=== PATIENT | female | born 1980 | race Hispanic/Latino ===

== ENCOUNTER 2017-07-27 10:04 | Emergency (ER) | payer OTHER ==
[2017-07-27] MEDS ORDERED: Sodium Chloride 0.9% 500 ML IV ONE ×2 (10:13→11:19)
--- NOTE | 2017-07-27 10:23 | C.PDOC ---
History Of Present Illness Patient BIBA from home for SOB. Patient has h/o asthma, states she used 4 nebs at home and gave herself a SC injection of epineprhine. In the field, patient was given IV solumedrol, IV magnesium sulfate, terbutaline and neb treatments. Time Seen by Provider: 07/27/17 10:09 Chief Complaint (Nursing): Respiratory Distress History Per: Patient, EMS History/Exam Limitations: no limitations Onset/Duration Of Symptoms: Hrs Current Symptoms Are (Timing): Still Present Current Respiratory Medications: See Home Med List Severity: Moderate Past Medical History Reviewed: Historical Data, Nursing Documentation, Vital Signs Vital Signs: Last Vital Signs Temp 97.8 F 07/27/17 10:14 Pulse 110 H 07/27/17 13:22 Resp 18 07/27/17 13:22 BP 117/77 07/27/17 13:22 Pulse Ox 96 07/27/17 13:22 - Medical History PMH: Anxiety, Asthma (intubationsX3), Depression, Gastrointestinal Ulcer, Pneumonia Surgical History: Appendectomy, Endoscopy, Tonsillectomy - [facility] Procedures CONTINUOUS INVASIVE MECHANICAL VENTILATION <96 CONSEC HRS (06/01/13) INFLUENZA VACCINATION (12/07/14) INJECT/INFUSE NEC (07/06/15) INSERT ENDOTRACHEAL TUBE (06/01/13) NEBULIZER THERAPY (07/06/15) NON-INVASIVE MECHANICAL VENTILATION (12/07/14) VACCINATION NEC (06/01/13) Family History: States: No Known Family Hx - Social History Hx Tobacco Use: No Hx Alcohol Use: No Hx Substance Use: No - Immunization History Hx Tetanus Toxoid Vaccination: No Hx Influenza Vaccination: Yes Hx Pneumococcal Vaccination: Yes Review Of Systems Except As Marked, All Systems Reviewed And Found Negative. Constitutional: Negative for: Fever, Chills Cardiovascular: Negative for: Chest Pain, Palpitations Respiratory: Positive for: Cough, Shortness of Breath, Wheezing Gastrointestinal: Negative for: Nausea, Vomiting, Abdominal Pain Physical Exam - Physical Exam Appears: Non-toxic, In Acute Distress (in mild respiratory distress) Skin: Warm, Dry Eye(s): bilateral: Normal Inspection Oral Mucosa: Moist Cardiovascular: Rhythm Regular (tachycardic) Respiratory: Accessory Muscle Use (mild), No Rales, No Rhonchi, Wheezing (mild expiratory wheezing) Gastrointestinal/Abdominal: Normal Exam, Bowel Sounds, Soft, No Tenderness Extremity: Normal ROM, No Pedal Edema, No Calf Tenderness Neurological/Psych: Oriented x3 ED Course And Treatment - Laboratory Results Result Diagrams: 07/27/17 10:35 07/27/17 10:35 ECG: Interpreted By Me, Viewed By Me (NSR 90 bpm, normal axis, T wave inversion III, no acute ST changes) ECG Interpretation: No Acute Changes O2 Sat by Pulse Oximetry: 95 (RA) Pulse Ox Interpretation: Normal - Radiology CXR: Interpreted by Me, Viewed By Me CXR Interpretation: Yes: No Acute Disease. No: Infiltrates Progress Note: Patient given duoneb and albuterol treatments. Blood work, EKG, CXR, peak flow ordered and reviewed. Reevaluation Time: 13:00 Reassessment Condition: Improved (Patient currently resting comfortably, on exam she has good air entry B/L without wheezing or accessory muscle use. Peak flow 250 - patient states this is good for her, and that she would like to be discharged home. Patient offered admission, but does not want to stay. rxs given for prednisone, albuterol inhaler. Patient instructed to return to ED immediately if she has worsening symptoms.) Disposition Counseled Patient/Family Regarding: Studies Performed, Diagnosis, Need For Followup, Rx Given - Disposition Referrals: Varsha London MD [Staff Provider] - Disposition: HOME/ ROUTINE Disposition Time: 13:00 Condition: STABLE Additional Instructions: FOLLOW UP WITH DR LONDON IN 1-2 DAYS USE MEDICATIONS DIRECTED RETURN TO ER IF SYMPTOMS WORSEN Prescriptions: Albuterol HFA [Ventolin HFA 90 mcg/actuation (8 g)] 0.09 mg IH Q4 PRN #1 puff PRN Reason: Wheezing predniSONE [predniSONE Tab] 60 mg PO DAILY #12 tab Instructions: Asthma (ED) Forms: [employer] (Kazakh) Print Language: INDONESIAN - Clinical Impression Clinical Impression: Asthma, Asthma exacerbation
[2017-07-27] MEDS ORDERED: Albuterol-Ipratrop 3 mg / 0.5 (3 ml) UD INH STA (10:24)
[2017-07-27 10:46] LABS: CHLORIDE 102 mmol/L (98-107)
[2017-07-27 10:47] LABS: BASO # 0.1 K/uL (0.0-0.2); BASO % 0.9 % (0.0-2.0); EOS # 0.9 K/uL (0.0-0.7); EOS % 5.5 % (0.0-4.0); HEMATOCRIT 41.8 % (34.0-47.0); LYMPH # 4.6 K/uL (1.0-4.3); LYMPH % 28.2 % (20.0-40.0); MEAN CELL VOLUME 88.6 fL (81.0-99.0); MEAN CORPUSCULAR HEMOGLOBIN 31.2 pg (27.0-31.0); MEAN CORPUSCULAR HGB CONC 35.2 g/dL (33.0-37.0); MEAN PLATELET VOLUME 7.9 fL (7.2-11.7); MONO # 0.6 K/uL (0.0-0.8); MONO % 3.4 % (0.0-10.0); NRBC % 0.1 % (0.0-2.0); POTASSIUM 3.8 mmol/L (3.6-5.2); RED CELL DISTRIBUTION WIDTH 13.1 % (11.5-14.5); SODIUM 134 mmol/L (132-148); WHITE BLOOD COUNT 16.4 K/uL (4.8-10.8)
[2017-07-27 10:49] LABS: ALKALINE PHOSPHATASE 68 U/L (38-126); AST/SGOT 34 U/L (14-36); BILIRUBIN,TOTAL 1.3 mg/dL (0.2-1.3); BLOOD UREA NITROGEN 14 mg/dL (7-17); CARBON DIOXIDE 17 mmol/L (22-30); GFR AFRICAN-AMERICAN > 60; TOTAL PROTEIN 8.4 g/dL (6.3-8.3)
[2017-07-27 10:50] LABS: ALT/SGPT 45 U/L (9-52); CALCIUM 8.6 mg/dl (8.6-10.4); GLUCOSE,RANDOM 195 mg/dL (65-105)
--- NOTE | 2017-07-27 11:01 | RAD ---
PROCEDURE: CHEST RADIOGRAPH, 1 VIEW HISTORY: SOB COMPARISON: Ro well on lateral chest 06/22/2016 FINDINGS: LUNGS: Clear. PLEURA: No pneumothorax or pleural fluid seen. CARDIOVASCULAR: Normal. OSSEOUS STRUCTURES: No significant abnormalities. VISUALIZED UPPER ABDOMEN: Normal. OTHER FINDINGS: None. IMPRESSION: No active disease.
[2017-07-27] MEDS ORDERED: Albuterol-Ipratrop 3 mg / 0.5 (3 ml) UD ONE (11:08)
[2017-07-27] MEDS ORDERED: Albuterol 0.083% Inhal Sol (2.5 mg/3 mL) UD IH STA (11:10)
[2017-07-27 11:30] LABS: RBC URINE 46 /hpf (0-3); URINE BILIRUBIN NEGATIVE (NEGATIVE); URINE BLOOD 3+ (NEGATIVE); URINE COLOR Yellow (YELLOW); URINE GLUCOSE (UA) NORMAL (Normal); URINE KETONE NEGATIVE (NEGATIVE); URINE LEUKOCYTE ESTERASE 2+ Leu/uL (Negative); URINE PROTEIN NEGATIVE (NEGATIVE); URINE UROBILINOGEN NORMAL mg/dL (0.2-1.0); WBC URINE 23 /hpf (0-5)
[2017-07-27 11:37] VITALS: TEMP 97.8
[2017-07-27 13:23] VITALS: BP 117/77; PULSE 110; RESP 18
[2017-07-29 00:16] VITALS: O2SAT 95
--- NOTE | 2017-07-29 12:51 | CARD ---
APPROVED REPORT EKG Measurement Heart [id number] <Conclusion> Normal sinus rhythm Prolonged QT Abnormal ECG
== END 2017-07-27 13:25 | disposition home or self-care (01) ==
LOC: C.ER 10:04
DX: J45.901 Unspecified asthma with (acute) exacerbation (principal)
CPT/HCPCS: 71010; 80053; 81001; 82550; 82553; 84484; 84703; 85025; 93005; 94640; 99285; J7040

== ENCOUNTER 2017-11-14 05:02 | Inpatient (IN) | payer OTHER ==
--- NOTE | 2017-11-14 05:16 | C.PDOC ---
History Of Present Illness 37 year old female presents to the ED stating she awoke in a coughing fit, unable to catch her breath. Used inhalers at home without relief. Asthma seemed to progressively worsen, so she called EMS. Patient received 125 mg solu-medrol and duoneb treatment in route. Has prior history of intubation and emergency cricothyroidotomy. Now speaking in 5-6 word sentences. No fever, chills, nausea , or vomiting. Time Seen by Provider: 11/14/17 05:15 Chief Complaint (Nursing): Respiratory Distress History Per: Patient History/Exam Limitations: no limitations Onset/Duration Of Symptoms: Hrs Current Symptoms Are (Timing): Still Present Associated Symptoms: Cough Preciptating Factors: None Severity: Severe Pain Scale Rating Of: 8 Recent travel outside of the [place]: No Additional History Per: EMS - Asthma History Prior Intubation (For Asthma): yes Medication Use: Daily Rescue Medications: See Home Medication List Control Medications: See Home Medication List Past Medical History Reviewed: Historical Data, Nursing Documentation, Vital Signs Vital Signs: Last Vital Signs Temp 99.8 F H 11/14/17 05:14 Pulse 120 H 11/14/17 06:28 Resp 18 11/14/17 06:28 BP 132/72 11/14/17 06:28 Pulse Ox 100 11/14/17 06:28 - Medical History PMH: Anxiety, Asthma (intubationsX3), Depression, Gastrointestinal Ulcer, Pneumonia Denies: HIV, HTN, Chronic Kidney Disease, Seizures, Sexually Transmitted Disease Surgical History: Appendectomy, Endoscopy, Tonsillectomy - [facility] Procedures CONTINUOUS INVASIVE MECHANICAL VENTILATION <96 CONSEC HRS (06/01/13) INFLUENZA VACCINATION (12/07/14) INJECT/INFUSE NEC (07/06/15) INSERT ENDOTRACHEAL TUBE (06/01/13) NEBULIZER THERAPY (07/06/15) NON-INVASIVE MECHANICAL VENTILATION (12/07/14) VACCINATION NEC (06/01/13) Family History: States: No Known Family Hx - Social History Hx Tobacco Use: No Hx Alcohol Use: No Hx Substance Use: No - Immunization History Hx Tetanus Toxoid Vaccination: No Hx Influenza Vaccination: Yes Hx Pneumococcal Vaccination: Yes Review Of Systems Constitutional: Negative for: Fever, Chills Eyes: Negative for: Redness ENT: Negative for: Throat Pain Cardiovascular: Negative for: Chest Pain Respiratory: Positive for: Cough, Shortness of Breath Gastrointestinal: Negative for: Nausea, Vomiting Genitourinary: Negative for: Dysuria Musculoskeletal: Negative for: Back Pain Skin: Negative for: Rash Neurological: Negative for: Weakness Psych: Negative for: Anxiety Physical Exam - Physical Exam Appears: In Acute Distress Skin: Warm, Dry Head: Normacephalic Eye(s): bilateral: Normal Inspection Oral Mucosa: Moist Tongue: Normal Appearing Lips: Normal Appearing Neck: Trachea Midline, Supple Chest: Symmetrical Cardiovascular: Rhythm Regular Respiratory: Decreased Breath Sounds, No Rales, No Rhonchi, Wheezing (scattered) Gastrointestinal/Abdominal: Soft, No Tenderness Back: No CVA Tenderness Extremity: Normal ROM Extremity: Bilateral: Atraumatic Pulses: Left Dorsalis Pedis: Normal, Right Dorsalis Pedis: Normal Neurological/Psych: Oriented x3, Normal Speech Gait: Unable To Assess ED Course And Treatment - Laboratory Results Result Diagrams: 11/14/17 05:27 18 05:27 ECG: Interpreted By Me, Viewed By Me ECG Rhythm: Sinus Tachycardia (120), Nonspecific Changes Pulse Ox Interpretation: Normal - Radiology CXR: Interpreted by Me, Viewed By Me CXR Interpretation: No: Infiltrates, Fracture, Pnemothorax Progress Note: Work-up initiated with blood work, ABG, flu swab, EKG, and chest x-ray. 5:50 AM feels better, less wheezing, Critical Care Time - Critical Care Note Total Time (in mins): 30 Documented critical care: time excludes all time spent performing seperately billable procedures. Disposition Discussed With : Varsha Mix Comment: accepted the pt on his service and took over the care estephania 6:48 AM Doctor Will See Patient In The: Hospital Counseled Patient/Family Regarding: Studies Performed, Diagnosis - Disposition Referrals: Varsha Mix MD [Primary Care Provider] - Disposition: HOSPITALIZED Disposition Time: 05:16 Condition: FAIR Forms: [facility] (Central African) - POA Present On Arrival: Poor Glycemic Control - Clinical Impression Clinical Impression: Acute asthma exacerbation - Scribe Statement The provider has reviewed the documentation as recorded by the Scribe (Olga Paz) Provider Attestation: All medical record entries made by the Scribe were at my direction and personally dictated by me. I have reviewed the chart and agree that the record accurately reflects my personal performance of the history, physical exam, medical decision making, and the department course for this patient. I have also personally directed, reviewed, and agree with the discharge instructions and disposition. Decision To Admit - Pt Status Changed To: Hospital Disposition Of: Inpatient - Admit Certification Admit to Inpatient:: After my assessment, the patient will require hospitalization for at least two midnights. This is because of the severity of symptoms shown, intensity of services needed, and/or the medical risk in this patient being treated as an outpatient. - InPatient: Physician Admission Certification:: After my assessment, the patient will require hospitalization for at least two midnights. This is because of the severity of symptoms shown, intensity of services needed, and/or the medical risk in this patient being treated as an outpatient. - . Bed Request Type: Telemetry Admitting Physician: Varsha Mix Patient Diagnosis: Acute asthma exacerbation
[2017-11-14] MEDS ORDERED: Sodium Chloride 0.9% 1,000 ML IV ONE (05:20)
[2017-11-14 05:30] LABS: BASO # 0.1 K/uL (0.0-0.2); BASO % 0.8 % (0.0-2.0); EOS # 0.7 K/uL (0.0-0.7); EOS % 5.1 % (0.0-4.0); HEMOGLOBIN 14.7 g/dL (11.0-16.0); LYMPH # 5.6 K/uL (1.0-4.3); LYMPH % 38.6 % (20.0-40.0); MEAN CORPUSCULAR HGB CONC 35.6 g/dL (33.0-37.0); MEAN PLATELET VOLUME 7.9 fL (7.2-11.7); MONO # 0.9 K/uL (0.0-0.8); NEUT # 7.2 K/uL (1.8-7.0); NEUT % 49.5 % (50.0-75.0); RBC 4.6 Mil/uL (3.80-5.20); RED CELL DISTRIBUTION WIDTH 13.3 % (11.5-14.5); WHITE BLOOD COUNT 14.6 K/uL (4.8-10.8)
[2017-11-14] MEDS ORDERED: Sodium Chloride 0.9% 1,000 ML ONE (05:41)
[2017-11-14 05:43] LABS: ARTERIAL BLOOD GAS HCO3 18.2 mmol/L (21-28); ARTERIAL BLOOD GAS O2 SAT 79.2 % (95-98); ARTERIAL BLOOD GAS PCO2 28 mm/Hg (35-45); ARTERIAL BLOOD GAS PH 7.37 (7.35-7.45); ARTERIAL BLOOD GAS PO2 36 mm/Hg (80-100); ARTERIAL BLOOD GAS TCO2 17.1 mmol/L (22-28)
[2017-11-14 05:47] LABS: CALCIUM 8.5 mg/dl (8.6-10.4); GFR AFRICAN-AMERICAN > 60; GFR NON-AFRICAN AMERICAN > 60
[2017-11-14] MEDS ORDERED: Albuterol-Ipratrop 3 mg / 0.5 (3 ml) UD ONE ×2 (05:56→11:25)
[2017-11-14 06:00] LABS: ALB/GLOB RATIO 1.2 (1.0-2.1); ALBUMIN 4.3 g/dL (3.5-5.0); ALT/SGPT 25 U/L (9-52); AST/SGOT 50 U/L (14-36); BLOOD UREA NITROGEN 11 mg/dL (7-17); MAGNESIUM 1.7 mg/dL (1.6-2.3)
[2017-11-14 06:11] LABS: INR 0.9; PROTHROMBIN TIME 10.4 SECONDS (9.7-12.2)
[2017-11-14] MEDS ORDERED: Piperacillin/Tazobact 3.375 gm 100 ML IVPB STA (06:17)
[2017-11-14] MEDS: Albuterol-Ipratrop 3 mg / 0.5 (3 ml) UD IH SCH (06:35)
[2017-11-14 06:40] LABS: ABG ALLEN TEST POS; ARTERIAL BLOOD GAS HCO3 21.7 mmol/L (21-28); ARTERIAL BLOOD GAS HEMOGLOBIN 13.1 g/dL (11.7-17.4); ARTERIAL BLOOD GAS O2 SAT 99.4 % (95-98); ARTERIAL BLOOD GAS PCO2 33 mm/Hg (35-45); ARTERIAL BLOOD GAS PH 7.39 (7.35-7.45); ARTERIAL BLOOD GAS PO2 121 mm/Hg (80-100)
[2017-11-14] MEDS ORDERED: Albuterol HFA 90 mcg/actuation (8 g) IH PRN ×2 (06:46→08:31)
[2017-11-14] MEDS ORDERED: Albuterol-Ipratrop 3 mg / 0.5 (3 ml) UD IH PRN (06:46)
[2017-11-14] MEDS: MethylPREDNISolone 40 mg Vial IVP SCH ×3 (06:58→20:13)
[2017-11-14] MEDS ORDERED: MethylPREDNISolone 40 mg Vial ONE (07:01)
[2017-11-14 08:27] LABS: SQUAMOUS EPITHIAL 1 /hpf (0-5); URINE BILIRUBIN NEGATIVE (NEGATIVE); URINE BLOOD NEGATIVE (NEGATIVE); URINE CLARITY Clear (Clear); URINE COLOR Straw (YELLOW); URINE GLUCOSE (UA) NORMAL (Normal); URINE LEUKOCYTE ESTERASE NEG Leu/uL (Negative); URINE NITRATE NEGATIVE (NEGATIVE); URINE PROTEIN NEGATIVE (NEGATIVE); URINE UROBILINOGEN NORMAL mg/dL (0.2-1.0)
[2017-11-14] MEDS: Albuterol-Ipratrop 3 mg / 0.5 (3 ml) UD INH SCH ×5 (08:45→23:37)
--- NOTE | 2017-11-14 08:54 | RAD ---
Chest x-ray single frontal view History: Shortness of breath. Comparison: 07/27/2017 Findings: Mild venous congestion. Heart size within normal limits. Impression: Mild venous congestion.
[2017-11-14] MEDS: Fluticasone Nasal 50 mcg/Spray NS SCH (11:09)
--- NOTE | 2017-11-14 11:35 | CP.PCM.PN ---
Subjective - Date & Time of Evaluation Date of Evaluation: 11/14/17 Time of Evaluation: 08:00 - Subjective Subjective: PGY 2 medicine progress note for Dr. Mix: Patient was seen and examined at bedside this morning. Patient stated she woke up at 4AM really short of breath. Denies recent illness or sick contacts. Patient state she has been taking all of her medications at home and reports frequent use of her nebulizer up to 10 times a days. She has prior history of intubation and emergency cricothyroidotomy. Patient sees Dr. Mix outpatient for asthma management. She is waiting for authorization of NUCALA treatment. She states her breathing has much improved since her arrival this morning. Denies chest pain, palpitations, fever/chill, productive cough. PMHx: asthma, anxiety, PUD, OCD, depression, endometriosis, and panic attacks SurgHx: tonsillectomy, rhinoplasty SocialHx: denies EtOH use, denies tobacco use, denies illicit drug use; lives at home with boyfriend and 2 children; unemployed FamilyHx: Mom- CHF (alive); Dad- CHF, asthma, DM, HTN, COPD (alive) Allergies: corn, eggs, milk, peanuts, seafood, shellfish, soy, wheat Meds: Risperidone 1mg PO HS, Klonipin 2mg PO daily, Singulair 10mg PO HS, Paxil 37.5 mg PO daily, Protonix 40mg PO daily, Advair 250/50, Flonase, Albuterol neublizer PMD: Dr Arley Negrete [facility] pulm: Dr. Varsha Mix Objective - Vital Signs/Intake and Output Vital Signs (last 24 hours): Temp Pulse Resp BP Pulse Ox 99.4 F 120 H 20 107/67 97 11/14/17 07:36 11/14/17 11:02 11/14/17 11:02 11/14/17 11:02 11/14/17 11:02 - Medications Medications: Current Medications Albuterol (Ventolin Hfa 90 Mcg/Actuation (8 G)) 1 puff IH RQ4 PRN PRN Reason: Wheezing Albuterol/Ipratropium (Duoneb 3 Mg/0.5 Mg (3 Ml) Ud) 3 ml IH RQ4 PRN PRN Reason: asthma Albuterol/Ipratropium (Duoneb 3 Mg/0.5 Mg (3 Ml) Ud) 3 ml INH RQ4 [facility] Last Admin: 11/14/17 08:45 Dose: 3 ml Alprazolam (Xanax) 1 mg PO TID PRN PRN Reason: Anxiety Stop: 11/21/17 06:47 Famotidine (Pepcid) 20 mg PO HS [facility] Fluticasone Propionate (Flonase) 1 spr NS DAILY [facility] Last Admin: 11/14/17 11:09 Dose: 1 spray Methylprednisolone (Solu-Medrol) 40 mg IVP Q6H [facility] Last Admin: 11/14/17 06:58 Dose: 40 mg Montelukast Sodium (Singulair) 10 mg PO HS [facility] Paroxetine HCl (Paxil Cr) 37.5 mg PO DAILY@1800 [facility] Risperidone (Risperdal Tab) 1 mg PO HS [facility] Fluticasone/Salmeterol (Advair Diskus 250/50) 1 puff IH RQ12 [facility] - Labs Labs: 11/14/17 05:27 11/14/17 05:27 PT 10.4 SECONDS (9.7-12.2) 11/14/17 05:27 INR 0.9 11/14/17 05:27 APTT 27 SECONDS (21-34) 11/14/17 05:27 - Constitutional Appears: Non-toxic, No Acute Distress - Head Exam Head Exam: ATRAUMATIC, NORMAL INSPECTION - Eye Exam Eye Exam: EOMI Pupil Exam: NORMAL ACCOMODATION - ENT Exam ENT Exam: Mucous Membranes Moist - Respiratory Exam Respiratory Exam: Wheezes, NORMAL BREATHING PATTERN. absent: Accessory Muscle Use, Respiratory Distress Additional comments: speaking in complete sentences - Cardiovascular Exam Cardiovascular Exam: REGULAR RHYTHM, +S1, +S2 - GI/Abdominal Exam GI & Abdominal Exam: Soft, Normal Bowel Sounds. absent: Distended, Firm, Guarding, Tenderness - Extremities Exam Extremities Exam: Normal Inspection. absent: Calf Tenderness, Pedal Edema - Back Exam Back Exam: NORMAL INSPECTION. absent: CVA tenderness (L), CVA tenderness (R), paraspinal tenderness - Neurological Exam Neurological Exam: Alert, Awake, CN II-XII Intact, Normal Gait, Oriented x3 Neuro motor strength exam: Left Upper Extremity: 5, Right Upper Extremity: 5, Left Lower Extremity: 5, Right Lower Extremity: 5 - Psychiatric Exam Psychiatric exam: Normal Affect, Normal Mood - Skin Skin Exam: Dry, Intact, Normal Color, Warm. absent: Cyanosis Assessment and Plan - Assessment and Plan (Free Text) Assessment: Asthma exacerbation patient speaking in complete sentences, minimal wheezing O2 saturation 97% on NC ABG wnl Duonebs prn Q4 hours Flonase Solu Medrol 40mg IVP Q6 hours Singulair 10mg PO HS Advair 250/50 f/u am labs Anxiety/depression Paxil 37.5 mg PO daily Risperidone 1mg PO HS Xanax 1mg PO TIS Prophylactic Measures Pepcid 20mg PO HS SCDS Lovenox 40mg SC daily Regular diet Dispo: Patient likely to be discharge tomorrow am Discussed with Dr. Mix. All management per Dr. Mix.
[2017-11-14] MEDS: Fluticasone-Salmeterol 250-50mcg Diskus IH SCH (21:35)
[2017-11-15] MEDS: MethylPREDNISolone 40 mg Vial IVP SCH ×4 (01:21→18:18)
[2017-11-15] MEDS: Albuterol-Ipratrop 3 mg / 0.5 (3 ml) UD INH SCH ×5 (03:15→19:55)
[2017-11-15] MEDS: Fluticasone-Salmeterol 250-50mcg Diskus IH SCH ×2 (08:16→19:55)
--- NOTE | 2017-11-15 09:53 | CP.PCM.PN ---
Subjective - Date & Time of Evaluation Date of Evaluation: 11/15/17 Time of Evaluation: 10:12 - Subjective Subjective: PGY 2 Medicine Note- Dr. Mix's service Patient seen and examined in no apparent acute distress. Patient states that she is having abdominal aches. She admits to some improvement of breathing. Patient reports sore throat. She otherwise denies subjective fevers or chills, nausea, vomiting or acute episodes of shortness of breath. Objective - Vital Signs/Intake and Output Vital Signs (last 24 hours): Temp Pulse Resp BP Pulse Ox 97.6 F 92 H 20 93/62 L 95 11/15/17 07:53 11/15/17 07:53 11/15/17 07:53 11/15/17 07:53 11/15/17 07:53 - Medications Medications: Current Medications Albuterol (Ventolin Hfa 90 Mcg/Actuation (8 G)) 1 puff IH RQ4 PRN PRN Reason: Wheezing Albuterol/Ipratropium (Duoneb 3 Mg/0.5 Mg (3 Ml) Ud) 3 ml IH RQ4 PRN PRN Reason: asthma Albuterol/Ipratropium (Duoneb 3 Mg/0.5 Mg (3 Ml) Ud) 3 ml INH RQ4 [facility] Last Admin: 11/15/17 08:15 Dose: 3 ml Alprazolam (Xanax) 1 mg PO TID PRN PRN Reason: Anxiety Stop: 11/21/17 06:47 Enoxaparin Sodium (Lovenox) 40 mg SC DAILY [facility] Famotidine (Pepcid) 20 mg PO [facility] Last Admin: 11/14/17 21:36 Dose: 20 mg Fluticasone Propionate (Flonase) 1 spr NS DAILY [facility] Last Admin: 11/14/17 11:09 Dose: 1 spray Methylprednisolone (Solu-Medrol) 40 mg IVP Q6H [facility] Last Admin: 11/15/17 06:17 Dose: 40 mg Montelukast Sodium (Singulair) 10 mg PO [facility] Last Admin: 11/14/17 21:36 Dose: 10 mg Paroxetine HCl (Paxil Cr) 37.5 mg PO DAILY@1800 [facility] Last Admin: 11/14/17 17:54 Dose: 37.5 mg Risperidone (Risperdal Tab) 1 mg PO [facility] Last Admin: 11/14/17 21:36 Dose: 1 mg Fluticasone/Salmeterol (Advair Diskus 250/50) 1 puff IH RQ12 [facility] Last Admin: 11/15/17 08:16 Dose: Not Given - Labs Labs: 11/14/17 05:27 11/14/17 05:27 PT 10.4 SECONDS (9.7-12.2) 11/14/17 05:27 INR 0.9 11/14/17 05:27 APTT 27 SECONDS (21-34) 11/14/17 05:27 - Constitutional Appears: Non-toxic - Head Exam Head Exam: NORMAL INSPECTION - Eye Exam Eye Exam: EOMI, PERRL - ENT Exam ENT Exam: Normal Exam - Respiratory Exam Respiratory Exam: NORMAL BREATHING PATTERN. absent: Decreased Breath Sounds, Respiratory Distress - Cardiovascular Exam Cardiovascular Exam: +S1, +S2 - GI/Abdominal Exam GI & Abdominal Exam: Soft - Extremities Exam Extremities Exam: Full ROM - Back Exam Back Exam: Full ROM - Psychiatric Exam Psychiatric exam: Normal Affect, Normal Mood - Skin Skin Exam: Dry, Intact, Normal Color, Warm Assessment and Plan - Assessment and Plan (Free Text) Assessment: Asthma exacerbation patient speaking in complete sentences, minimal wheezing O2 saturation 97% on NC ABG wnl Duonebs prn Q4 hours Flonase Solu Medrol 40mg IVP Q6 hours Singulair 10mg PO HS Advair 250/50 F/U AM labs Abdominal discomfort Bentyl administered Monitor Assess in the AM Anxiety/depression Paxil 37.5 mg PO daily Risperidone 1mg PO HS Xanax 1mg PO TIS Prophylactic Measures Pepcid 20mg PO HS SCDS Lovenox 40mg SC daily Regular diet Dispo: Patient likely to be discharged over the weekend. Discussed with Dr. Mix. All management per Dr. Mix.
[2017-11-15] MEDS: Enoxaparin 40 mg Syringe SC SCH (10:04)
[2017-11-15] MEDS: Fluticasone Nasal 50 mcg/Spray NS SCH (10:04)
--- NOTE | 2017-11-15 10:29 | HP ---
HISTORY: Ms. Porras is a 37-year-old female, admitted to the hospital with chief complaint of coughing, wheezing, and shortness of breath. The patient came to the hospital with severe respiratory distress, started on IV steroids, bronchodilators without good response, advised admission. The patient is a nonsmoker, nondrinker. ALLERGIES: THE PATIENT HAS MULTIPLE ALLERGIES. PHYSICAL EXAMINATION: GENERAL: The patient is awake, alert, oriented, short of breath. VITAL SIGNS: Temperature 98, pulse 90. HEENT: Within normal limits. NECK: Supple. CHEST: Symmetrical. HEART: Regular. ABDOMEN: Soft. EXTREMITIES: No edema. IMPRESSION: The patient suffers from status asthmaticus. The patient needs bedrest, supportive care, bronchodilator. Varsha Mix MD
[2017-11-15] MEDS: Benzocaine/Menthol (Cepacol) Lozenge MT PRN (18:17)
[2017-11-16] MEDS: MethylPREDNISolone 40 mg Vial IVP SCH ×3 (00:09→12:22)
[2017-11-16] MEDS: Albuterol-Ipratrop 3 mg / 0.5 (3 ml) UD INH SCH ×5 (00:31→16:19)
[2017-11-16 07:31] LABS: BASO % 0.1 % (0.0-2.0); LYMPH # 1.1 K/uL (1.0-4.3); MEAN CELL VOLUME 89.7 fL (81.0-99.0); MEAN CORPUSCULAR HGB CONC 35.7 g/dL (33.0-37.0); MEAN PLATELET VOLUME 7.8 fL (7.2-11.7); MONO # 0.4 K/uL (0.0-0.8); MONO % 1.9 % (0.0-10.0); NEUT # 21.2 K/uL (1.8-7.0); PLATELET COUNT 327 K/uL (130-400); RBC 4.05 Mil/uL (3.80-5.20); RED CELL DISTRIBUTION WIDTH 13.5 % (11.5-14.5); WHITE BLOOD COUNT 22.8 K/uL (4.8-10.8)
[2017-11-16 07:52] LABS: ALB/GLOB RATIO 1.3 (1.0-2.1); ALBUMIN 3.8 g/dL (3.5-5.0); ALT/SGPT 28 U/L (9-52); AST/SGOT 16 U/L (14-36); BLOOD UREA NITROGEN 17 mg/dL (7-17); CALCIUM 8.9 mg/dl (8.6-10.4); GFR AFRICAN-AMERICAN > 60; GFR NON-AFRICAN AMERICAN > 60; MAGNESIUM 2.1 mg/dL (1.6-2.3)
[2017-11-16 07:53] VITALS: BP 107/69; RESP 18; TEMP 97.8; O2SAT 93
[2017-11-16] MEDS: Fluticasone-Salmeterol 250-50mcg Diskus IH SCH (08:25)
[2017-11-16] MEDS: Benzocaine/Menthol (Cepacol) Lozenge MT PRN ×2 (08:55→14:08)
[2017-11-16] MEDS: Fluticasone Nasal 50 mcg/Spray NS SCH (09:44)
[2017-11-16] MEDS: Enoxaparin 40 mg Syringe SC SCH (09:45)
[2017-11-16 10:59] LABS: LYMPHOCYTE 1 % (20-40); MONOCYTE 1 % (0-10); NEUTROPHIL 98 % (50-75); TOTAL CELLS COUNTED 100
[2017-11-16 11:00] LABS: PLATELET ESTIMATE NORMAL (NORMAL)
--- NOTE | 2017-11-16 11:05 | CP.PCM.PN ---
Subjective - Date & Time of Evaluation Date of Evaluation: 11/16/17 Time of Evaluation: 10:40 - Subjective Subjective: SIZE TESTER NOTES Patient seen today with Dr. Rohan stanley , sob improved, c/o sore throat BC - negative - so far influenza - negative As per Dr. Rohan stanley, pat can be discharged home today with medrol dose packk an dz- pack and f/u with Dr. Rohan stanley office nex t week All rx given Objective - Vital Signs/Intake and Output Vital Signs (last 24 hours): Temp Pulse Resp BP Pulse Ox 97.8 F 84 18 107/69 93 L 11/16/17 07:05 11/16/17 07:05 11/16/17 07:05 11/16/17 07:05 11/16/17 07:05 Intake and Output: 11/16/17 11/16/17 06:59 18:59 Intake Total 240 Balance 240 - Medications Medications: Current Medications Albuterol (Ventolin Hfa 90 Mcg/Actuation (8 G)) 1 puff IH RQ4 PRN PRN Reason: Wheezing Albuterol/Ipratropium (Duoneb 3 Mg/0.5 Mg (3 Ml) Ud) 3 ml IH RQ4 PRN PRN Reason: asthma Albuterol/Ipratropium (Duoneb 3 Mg/0.5 Mg (3 Ml) Ud) 3 ml INH RQ4 [facility] Last Admin: 11/16/17 08:15 Dose: 3 ml Alprazolam (Xanax) 1 mg PO TID PRN PRN Reason: Anxiety Stop: 11/21/17 06:47 Benzocaine/Menthol (Cepacol Sore Throat) 1 margret MT Q4 PRN PRN Reason: Sore Throat Last Admin: 11/16/17 08:55 Dose: 1 margret Dicyclomine HCl (Bentyl) 10 mg PO QID PRN PRN Reason: Other Enoxaparin Sodium (Lovenox) 40 mg SC DAILY [facility] Last Admin: 11/16/17 09:45 Dose: 40 mg Famotidine (Pepcid) 20 mg PO HS [facility] Last Admin: 11/15/17 21:13 Dose: 20 mg Fluticasone Propionate (Flonase) 1 spr NS DAILY [facility] Last Admin: 11/16/17 09:44 Dose: 1 spray Methylprednisolone (Solu-Medrol) 40 mg IVP Q6H [facility] Last Admin: 11/16/17 06:10 Dose: 40 mg Montelukast Sodium (Singulair) 10 mg PO [facility] Last Admin: 11/15/17 21:13 Dose: 10 mg Paroxetine HCl (Paxil Cr) 37.5 mg PO DAILY@1800 [facility] Last Admin: 11/15/17 18:30 Dose: 37.5 mg Risperidone (Risperdal Tab) 1 mg PO [facility] Last Admin: 11/15/17 21:13 Dose: 1 mg Fluticasone/Salmeterol (Advair Diskus 250/50) 1 puff IH RQ12 [facility] Last Admin: 11/16/17 08:25 Dose: 1 puff - Labs Labs: 11/16/17 07:10 11/16/17 07:10 PT 10.4 SECONDS (9.7-12.2) 11/14/17 05:27 INR 0.9 11/14/17 05:27 APTT 27 SECONDS (21-34) 11/14/17 05:27
[2017-11-16 11:09] VITALS: PULSE 71
[2017-11-16] MEDS ORDERED: Pneumococcal 23-Valent Vaccine IM ONE (12:35)
--- NOTE | 2017-11-16 15:22 | CARD ---
APPROVED REPORT EKG Measurement Heart [id number] <Conclusion> Sinus tachycardia T wave abnormality, consider inferior ischemia Abnormal ECG
== END 2017-11-16 18:30 | disposition home or self-care (01) | DRG 97 ==
LOC: C.ER 05:02 → SUPCPDRO 05:02 → C.9E 06:46 → C.5S 14:37
PROVIDERS: ADMIT Internal Medicine Pulmonary Disease; ATTEND Internal Medicine Pulmonary Disease
DX: J45.902 Unspecified asthma with status asthmaticus (principal); F32.9 Major depressive disorder, single episode, unspecified; F41.0 Panic disorder [episodic paroxysmal anxiety]; F42.9 Obsessive-compulsive disorder, unspecified; Z87.11 Personal history of peptic ulcer disease; Z23 Encounter for immunization; Z91.012 Allergy to eggs; Z91.011 Allergy to milk products; Z91.010 Allergy to peanuts; Z91.013 Allergy to seafood; Z91.018 Allergy to other foods

== ENCOUNTER 2018-01-26 00:52 | Emergency (ER) | payer OTHER ==
[2018-01-26 01:03] VITALS: BMI 28.3
[2018-01-26 01:07] VITALS: RESP 19
[2018-01-26] MEDS ORDERED: Iohexol 240 (50 ml) ONE (02:11)
--- NOTE | 2018-01-26 02:13 | C.PDOC ---
History Of Present Illness <Aleida Alas - Last Filed: 01/26/18 03:51> <Yessenia Rondon - Last Filed: 01/26/18 06:12> 37 y/o female with asthma, anxiety, hx ?liver problems, GERD/PUD, and ?colitis presents to ed with 3 day hx of worsening abdominal pain with bloated feeling and vomiting today. pt denies fever and chills. no cough, no difficulty breathing. c/o pain to left upper quadrant and lower abdomen. (Yessenia Rondon) <Aleida Alas - Last Filed: 01/26/18 03:51> History Per: Patient History/Exam Limitations: no limitations Onset/Duration Of Symptoms: Days (3) Current Symptoms Are (Timing): Still Present Severity: Moderate Location Of Pain/Discomfort: RLQ, LUQ, LLQ Quality Of Discomfort: Unable To Describe Associated Symptoms: Nausea, Vomiting, Loss Of Appetite. denies: Fever, Chills , Diarrhea, Constipation Alleviating Factors: None Last Bowel Movement: Today Last Menstral Period: few days ago <Yessenia Rondon - Last Filed: 01/26/18 06:12> Time Seen by Provider: 01/26/18 01:13 Chief Complaint (Nursing): Abdominal Pain Past Medical History Reviewed: Historical Data, Nursing Documentation, Vital Signs - Medical History PMH: Anxiety, Asthma (intubationsX3), Depression, Gastrointestinal Ulcer, Pneumonia Denies: HIV, HTN, Chronic Kidney Disease, Seizures, Sexually Transmitted Disease Surgical History: Appendectomy, Endoscopy, Tonsillectomy Family History: States: Unknown Family Hx - Social History Hx Tobacco Use: No Hx Alcohol Use: No Hx Substance Use: No - Immunization History Hx Tetanus Toxoid Vaccination: No Hx Influenza Vaccination: Yes Hx Pneumococcal Vaccination: Yes <Yessenia Rondon - Last Filed: 01/26/18 06:12> Vital Signs: Last Vital Signs Temp 97.9 F 01/26/18 05:59 Pulse 70 01/26/18 05:59 Resp 19 01/26/18 05:59 BP 101/77 01/26/18 05:59 Pulse Ox 98 01/26/18 06:10 - [facility] Procedures CONTINUOUS INVASIVE MECHANICAL VENTILATION <96 CONSEC HRS (06/01/13) INFLUENZA VACCINATION (12/07/14) INJECT/INFUSE NEC (07/06/15) INSERT ENDOTRACHEAL TUBE (06/01/13) NEBULIZER THERAPY (07/06/15) NON-INVASIVE MECHANICAL VENTILATION (12/07/14) VACCINATION NEC (06/01/13) Review Of Systems Constitutional: Negative for: Fever, Chills Cardiovascular: Negative for: Chest Pain Respiratory: Negative for: Cough, Shortness of Breath, Wheezing Gastrointestinal: Positive for: Nausea, Vomiting, Abdominal Pain. Negative for : Diarrhea, Constipation Musculoskeletal: Negative for: Back Pain Skin: Negative for: Rash Neurological: Negative for: Weakness, Numbness <Yessenia Rondon - Last Filed: 01/26/18 06:12> Physical Exam - Physical Exam Appears: Non-toxic, No Acute Distress Skin: Warm, Dry Head: Atraumatic, Normacephalic Eye(s): bilateral: Normal Inspection Oral Mucosa: Moist Chest: Symmetrical, No Deformity, No Tenderness Cardiovascular: Rhythm Regular, No Murmur Respiratory: No Decreased Breath Sounds, No Accessory Muscle Use, No Wheezing Gastrointestinal/Abdominal: Bowel Sounds, Soft, Tenderness (in left lower quadrant), No Distention, No Guarding, No Rebound Back: No CVA Tenderness Neurological/Psych: Oriented x3, Normal Speech, Normal Cognition, Normal Motor, Normal Sensation <Yessenia Rondon - Last Filed: 01/26/18 06:12> ED Course And Treatment - Laboratory Results Result Diagrams: 01/26/18 02:28 01/26/18 02:28 <Aleida Alas - Last Filed: 01/26/18 03:51> - Laboratory Results Result Diagrams: 01/26/18 02:28 01/26/18 02:28 O2 Sat by Pulse Oximetry: 98 <Yessenia Rondon - Last Filed: 01/26/18 06:12> Medical Decision Making <Aleida Alas - Last Filed: 01/26/18 03:51> <Yessenia Rondon - Last Filed: 01/26/18 06:12> Medical Decision Making: pt wiht hx ab pain, n,v x few days with hx ?colitis in past. will get labs, do po contrast only ct (hx asthma and shellfish allergy) for possible diverticulitis, colits, pancreatitis. 603 am pt appears well. tolerated po contrast. ct scan neg for acute pathology , will d/c with ompespzole., for hiatal hernia. (Yessenia Rondon) Disposition <Aleida Alas - Last Filed: 01/26/18 03:51> Counseled Patient/Family Regarding: Studies Performed, Diagnosis, Need For Followup, Rx Given - Disposition Disposition Time: 06:05 <Yessenia Rondon - Last Filed: 01/26/18 06:12> - Disposition Referrals: Varsha Mix MD [Staff Provider] - Paxton Green MD [Staff Provider] - Disposition: HOME/ ROUTINE Condition: IMPROVED Additional Instructions: PLease take omeprazole as prescribed. FOllow up with Dr Mix and Dr Green (GI) . Return to ER for any worse symptoms. Prescriptions: Omeprazole 40 mg PO DAILY #15 capsule. Instructions: Hiatal Hernia (DC) Forms: [facility] (Luxem[place]ish), General Discharge Instructions - Clinical Impression Clinical Impression: Hiatal hernia, Abdominal pain
[2018-01-26 02:31] LABS: BASO # 0.1 K/uL (0.0-0.2); BASO % 0.9 % (0.0-2.0); EOS # 0.2 K/uL (0.0-0.7); EOS % 1.4 % (0.0-4.0); LYMPH # 3.1 K/uL (1.0-4.3); LYMPH % 21.3 % (20.0-40.0); MEAN CELL VOLUME 89.7 fL (81.0-99.0); MEAN CORPUSCULAR HGB CONC 35.7 g/dL (33.0-37.0); MEAN PLATELET VOLUME 7.5 fL (7.2-11.7); MONO # 0.7 K/uL (0.0-0.8); MONO % 5.1 % (0.0-10.0); NEUT # 10.4 K/uL (1.8-7.0); NEUT % 71.3 % (50.0-75.0); RBC 4.37 Mil/uL (3.80-5.20); RED CELL DISTRIBUTION WIDTH 13.7 % (11.5-14.5); WHITE BLOOD COUNT 14.5 K/uL (4.8-10.8)
[2018-01-26 02:34] LABS: SQUAMOUS EPITHIAL < 1 /hpf (0-5); URINE BACTERIA RARE (<OCC); URINE BILIRUBIN NEGATIVE (NEGATIVE); URINE BLOOD NEGATIVE (NEGATIVE); URINE CLARITY Turbid (Clear); URINE COLOR Red (YELLOW); URINE GLUCOSE (UA) NORMAL (Normal); URINE LEUKOCYTE ESTERASE NEG Leu/uL (Negative); URINE PROTEIN NEGATIVE (NEGATIVE); URINE UROBILINOGEN NORMAL mg/dL (0.2-1.0)
[2018-01-26] MEDS ORDERED: Iohexol 240 (50 ml) PO ONE (02:42)
[2018-01-26 02:43] LABS: ALB/GLOB RATIO 1.2 (1.0-2.1); ALBUMIN 3.9 g/dL (3.5-5.0); ALT/SGPT 34 U/L (9-52); AST/SGOT 19 U/L (14-36); BLOOD UREA NITROGEN 15 mg/dL (7-17); CALCIUM 8.7 mg/dl (8.6-10.4); GFR AFRICAN-AMERICAN > 60; GFR NON-AFRICAN AMERICAN > 60; LIPASE 206 U/L (23-300)
--- NOTE | 2018-01-26 04:49 | CT ---
EXAM: CT Abdomen and Pelvis Without Intravenous Contrast CLINICAL HISTORY: 37 years old, female; Pain; Abdominal pain; Patient HX: 03-27-15 images sent; Additional info: Lower ab pain, eval for colitis/diverticulitis TECHNIQUE: Axial computed tomography images of the abdomen and pelvis without intravenous contrast. All CT scans at this facility use one or more dose reduction techniques, viz.: automated exposure control; ma/kV adjustment per patient size (including targeted exams where dose is matched to indication; i.e. head); or iterative reconstruction technique. 656 images are submitted. Oral contrast was administered. Axial images are submitted in lung and soft tissue windows.Limitations: Absence of IV contrast decreases sensitivity for detecting vascular and visceral injury and abnormality. Oral contrast was administered. Coronal and sagittal reformatted images were created and reviewed. COMPARISON: CT - ABD PELVIS PO IV CONTRAST 2015-03-27 15:29 FINDINGS: Lung bases: There is bibasilar atelectasis. ABDOMEN:Limitations: Absence of IV contrast decreases sensitivity for detecting vascular and visceral injury and abnormality. Liver: Unremarkable. Gallbladder and bile ducts: Unremarkable. No ductal dilation. Pancreas: Unremarkable. No ductal dilation. Spleen: Left upper quadrant splenule. Adrenals: Unremarkable. No mass. Kidneys and ureters: Unremarkable. No obstructing stones. No hydronephrosis. Stomach and bowel: Small hiatal hernia with delayed emptying versus gastroesophageal reflux. No obstruction. No mucosal thickening. Appendix: Suboptimally seen normal appendix. PELVIS: Bladder: Bladder distention. Correlation with patient's voiding status is recommended. Reproductive: High riding ovaries left more than right. Left ovarian dominant follicles. Similar findings were seen on prior examination. ABDOMEN and PELVIS: Intraperitoneal space: Unremarkable. No free air. No significant fluid collection. Bones/joints: No acute fracture. No dislocation. Soft tissues: There is a fat-containing umbilical hernia. There is a fat-containing umbilical hernia. Vasculature: Unremarkable. No abdominal aortic aneurysm. Lymph nodes: Unremarkable. No enlarged lymph nodes. IMPRESSION: No acute findings.
[2018-01-26 06:01] VITALS: BP 101/77; PULSE 70; TEMP 97.9; O2SAT 98
== END 2018-01-26 06:31 | disposition home or self-care (01) ==
LOC: C.ER 00:52
DX: K44.9 Diaphragmatic hernia without obstruction or gangrene (principal); R10.32 Left lower quadrant pain
CPT/HCPCS: 74176; 80053; 81001; 83690; 85025; 96374; 99285; J2405; Q9966

== ENCOUNTER 2018-02-25 06:58 | Day surgery (SDC) | payer OTHER ==
--- NOTE | 2018-02-25 09:14 | CP.SDSHP ---
Same Day Surgery H & P - History Proposed Procedure: EGD Pre-Op Diagnosis: SEE NOTES - Previous Medical/Surgical History Pulmonary: Asthma Misc: Other Pain: 4.Moderate Pain - Allergies Allergies: Allergies corn Allergy (Verified 02/25/18 07:43) NAUSEA EGG Allergy (Verified 02/25/18 07:43) NAUSEA milk Allergy (Verified 02/25/18 07:43) NAUSEA peanut Allergy (Verified 02/25/18 07:43) RASH shellfish derived Allergy (Verified 02/25/18 07:43) ANAPHYLAXIS soy Allergy (Verified 02/25/18 07:43) RASH trees Allergy (Severe, Uncoded 02/25/18 07:43) RASH dust Allergy (Uncoded 02/25/18 07:43) SHORTNESS OF BREATH grass Allergy (Uncoded 02/25/18 07:43) RASH novacaine Allergy (Uncoded 02/25/18 07:43) ANAPHYLAXIS pets Allergy (Uncoded 02/25/18 07:43) SHORTNESS OF BREATH pollen Allergy (Uncoded 02/25/18 07:43) CONGESTION SEAFOOD Allergy (Uncoded 02/25/18 07:43) ANAPHYLAXIS - Physical Exam General Appearance: N Vital Signs: Vital Signs 02/25/18 07:20 Temperature 97.5 F L Pulse Rate 80 Respiratory 20 Rate Blood Pressure 129/78 O2 Sat by Pulse 99 Oximetry Mental Status: Alert & Oriented x3 Neuro: WNL Heart: WNL Lungs: Other GI: WNL - {Optional Preform as Required} Breast: WNL Abdomen: Other Rectal: Other Integument: WNL : Other Ortho: WNL ENT: WNL - Impression Pt. Evaluated Today:Candidate for Anesthesia & Procedure: Yes - Date & Time Time: 09:14 Short Stay Discharge - Short Stay Discharge Admitting Diagnosis/Reason for Visit: DYSPEPSIA Disposition: HOME/ ROUTINE
[2018-02-25] MEDS ORDERED: Midazolam 2 MG/2 ML VIAL ONE (09:20)
[2018-02-25] MEDS ORDERED: Propofol 10 mg/ml Inj (20 ML) ONE (09:21)
[2018-02-25] MEDS ORDERED: Belladonna-Phenobarbital PO ONE (09:30)
[2018-02-25 10:00] VITALS: TEMP 98.9
[2018-02-25 10:02] VITALS: O2SAT 98
[2018-02-25 10:40] VITALS: BP 96/61; PULSE 85; RESP 17
== END 2018-02-25 10:38 | disposition home or self-care (01) ==
LOC: C.ENDO 06:58
PROVIDERS: ATTEND Specialist
DX: K29.70 Gastritis, unspecified, without bleeding (principal); K44.9 Diaphragmatic hernia without obstruction or gangrene; B37.81 Candidal esophagitis
CPT/HCPCS: 43239; 84703; 88305; 88342; J2001; J2250; J2704

== ENCOUNTER 2018-07-20 21:46 | Inpatient (IN) | payer OTHER ==
[2018-07-20 21:50] VITALS: BMI 28.3
[2018-07-20] MEDS ORDERED: Iodixanol 320 MG/ML 100 ML BOTTLE IV ONE (22:32)
--- NOTE | 2018-07-20 22:33 | C.PDOC ---
History Of Present Illness 37 y/o F c PMHx anxiety, hiatal hernia, asthma, liver disease p/w R sided paresthesias and weakness x 2 hours. Patient states that 2 hours ago (this is the last time well), she had sudden pain of the R sided neck radiating down R arm and leg and to posterior head associated with inability to open mouth due to pain and tongue numbness, both causing difficulty speaking. She report tinnitus earlier today. She reports numbness and tingling of the R sided face, arm, and leg and feels weak in those limbs as well. Denies trauma, fever, vomiting, dysuria. She notes that earlier today, she had facial swelling like she was "stung by a bee," and she took Prednisone and Benadryl which significantly improved her redness and swelling. PMD Dominguez. Time Seen by Provider: 07/20/18 22:10 Chief Complaint (Nursing): Headache Past Medical History Vital Signs: Last Vital Signs Temp 98.4 F 07/20/18 21:54 Pulse 82 07/20/18 21:54 Resp 17 07/20/18 21:54 BP 125/90 07/20/18 21:54 Pulse Ox 98 07/20/18 21:54 - Medical History PMH: Anxiety, Asthma (intubationsX3), Depression, Gastrointestinal Ulcer, Pneumonia Denies: HIV, HTN, Chronic Kidney Disease, Seizures, Sexually Transmitted Disease Surgical History: Appendectomy, Endoscopy, Tonsillectomy - [facility] Procedures CONTINUOUS INVASIVE MECHANICAL VENTILATION <96 CONSEC HRS (06/01/13) INFLUENZA VACCINATION (12/07/14) INJECT/INFUSE NEC (07/06/15) INSERT ENDOTRACHEAL TUBE (06/01/13) NEBULIZER THERAPY (07/06/15) NON-INVASIVE MECHANICAL VENTILATION (12/07/14) VACCINATION NEC (06/01/13) Family History: States: Unknown Family Hx - Social History Hx Tobacco Use: No Hx Alcohol Use: No Hx Substance Use: No - Immunization History Hx Tetanus Toxoid Vaccination: No Hx Influenza Vaccination: No Hx Pneumococcal Vaccination: No Review Of Systems Except As Marked, All Systems Reviewed And Found Negative. Constitutional: Negative for: Fever Gastrointestinal: Negative for: Vomiting Physical Exam - Physical Exam Additional Physical Exam Comments: Gen: Appears anxious Head: NC/AT Eyes: PERRL. No ptosis. ENT: MMM. Mouth not opening largely when speaking causing muffled speech but able to open mouth fully when commanded Neck: No bruit. No pulstaile mass. Chest: No deformity CV: Regular rate Lungs: CTA b/l Abd: Soft, NT Back: No midline tenderness. No CVA tenderness Extremities: No deformity, edema, or tenderness Skin: No rash Neuro: Alert, follows commands. No facial droop. Equal utility hand strength. Sensation to light touch subjectively decreased on R leg, arm, and face. ED Course And Treatment - Laboratory Results Result Diagrams: 07/20/18 22:36 07/20/18 22:36 O2 Sat by Pulse Oximetry: 98 NIHSS Stroke Scale - Date/Time Evaluation Performed Date Performed: 07/20/18 Time Performed: 22:37 When Was NIHSS Performed: Baseline - How Severe is the Stroke Level of Consciousness: 0=Alert LOC to Questions: 0=Both comments correct LOC to commands: 0=Obeys both correctly Best Gaze: 0=Normal Visual: 0=No visual loss Facial: 0=Normal Motor Arm - Right: 0=No drift Motor Leg - Left: 0=No drift Motor Leg - Right: 0=No drift Limb Ataxia: 0=Absent Sensory: 1=Mild to moderate loss Best Language: 0=No aphasia Dysarthia: 1=Mild to moderate slurring Extinction & Inattention (Neglect): 0=Normal, no object rTPA Inclusion/Exclusion - Refusal of Treatment Patient Refused Treatment: No - Inclusion Criteria for Altepase Patient is 18 years or Older: Yes The Clinical Diagnosis of Ischemic Stroke That is Causing a Potentially Disabling Neurological Deficit: Yes Time of Onset is Well Established to be Less Than 270 Minute Before Treatment Would Begin: Yes Risk/Benefit Discussed With Patient/Family Member Present: Yes Medical Decision Making Medical Decision Making: CODE STROKE activated. EXAM: CTA Head and Neck with Intravenous Contrast. CLINICAL HISTORY: Right sided numbness, weakness TECHNIQUE: Axial CTA images of the head and neck performed with intravenous contrast. MIP reconstructed images were created and reviewed. CONTRAST: With; VISI 100 MLS was injected intravenously without incident. COMPARISON: None provided. FINDINGS: VASCULATURE: NECK: COMMON CAROTID ARTERIES No significant canal stenosis. No dissection or occlusion. EXTERNAL CAROTID ARTERIES Patent. HEAD AND NECK: INTERNAL CAROTID ARTERIES No stenosis by NASCET criteria. No dissection or occlusion. VERTEBRAL ARTERIES No significant canal stenosis. No dissection or occlusion. HEAD: ANTERIOR CEREBRAL ARTERIES No significant stenosis. No occlusion. No aneurysm. MIDDLE CEREBRAL ARTERIES No significant stenosis. No occlusion. No aneurysm. POSTERIOR CEREBRAL ARTERIES No significant stenosis. No occlusion. No aneurysm. BASILAR ARTERY No significant stenosis. No occlusion. No aneurysm. OTHER: SOFT TISSUES No acute finding. No occlusion or significant stenosis. BONES No acute osseous abnormality. IMPRESSION: Unremarkable CTA of the head and neck. Electronically signed on Jul 20, 2018 11:12:49 PM EDT by: Vishal Drew M.D., MBA Certified By ABR & CBCCT Fellowship Trained MRI and CT Specialist EXAM: CT Head Without IV contrast. CLINICAL HISTORY: Right sided numbness, weakness TECHNIQUE: Axial computed tomography images of the head/brain without intravenous contrast. 1043 mGy-cm COMPARISON: None provided. FINDINGS: BRAIN No acute intraparenchymal hemorrhage. No mass lesion. No CT evidence for acute territorial infarct. No midline shift or extra-axial collections. VENTRICLES: No hydrocephalus. ORBITS: The orbits are unremarkable. SINUSES AND MASTOIDS: The paranasal sinuses and mastoid air cells are clear. BONES: No fracture. IMPRESSION: No acute intracranial abnormality. Electronically signed on Jul 20, 2018 10:49:29 PM EDT by: Vishal Drew M.D., MONY Certified By ABR & CBCCT Fellowship Trained MRI and CT Specialist Discussed with Dr. Gaspar 10-52pm EST. Addendum electronically signed by Vishal Drew M.D., MONY Certified By ABR & CBCCT on July 20, 2018 11:01:[address] Mix accepts patient to his service. Dr. Jay consulted for neuro, given NIHSS of 2, psych history, vital signs, not candidate for tPA. Recommends ASA, IVF, and Magnesium 2g. Disposition - Disposition Disposition: HOSPITALIZED Disposition Time: 23:29 Condition: GUARDED Forms: [facility] (Danish) - POA Core Measure Indicators: Code Stroke - Clinical Impression Clinical Impression: Hemiparesthesia
[2018-07-20 22:40] LABS: BASO # 0.1 K/uL (0.0-0.2); BASO % 0.7 % (0.0-2.0); EOS # 0.1 K/uL (0.0-0.7); EOS % 0.6 % (0.0-4.0); HEMOGLOBIN 14.5 g/dL (11.0-16.0); LYMPH # 2.8 K/uL (1.0-4.3); MEAN CELL VOLUME 88.9 fL (81.0-99.0); MEAN CORPUSCULAR HEMOGLOBIN 31.5 pg (27.0-31.0); MEAN CORPUSCULAR HGB CONC 35.4 g/dL (33.0-37.0); MEAN PLATELET VOLUME 7.6 fL (7.2-11.7); MONO # 0.8 K/uL (0.0-0.8); MONO % 4.6 % (0.0-10.0); NEUT # 12.8 K/uL (1.8-7.0); NEUT % 77.1 % (50.0-75.0); RBC 4.59 Mil/uL (3.80-5.20); RED CELL DISTRIBUTION WIDTH 13.5 % (11.5-14.5); WHITE BLOOD COUNT 16.6 K/uL (4.8-10.8)
[2018-07-20 22:48] LABS: INR 1.1; PROTHROMBIN TIME 11.5 SECONDS (9.7-12.2)
[2018-07-20 22:53] LABS: ALB/GLOB RATIO 1.4 (1.0-2.1); ALBUMIN 4.2 g/dL (3.5-5.0); ALT/SGPT 24 U/L (9-52); AST/SGOT 18 U/L (14-36); BLOOD UREA NITROGEN 12 mg/dL (7-17); GFR NON-AFRICAN AMERICAN > 60; HDL CHOLESTEROL 62 mg/dL (30-70)
[2018-07-20] MEDS ORDERED: Sodium Chloride 0.9% 1,000 ML IV STA (23:02)
[2018-07-20 23:04] LABS: LDL CHOLESTEROL 75 mg/dL (0-129)
[2018-07-20] MEDS ORDERED: Sodium Chloride 0.9% 1,000 ML ONE (23:09)
[2018-07-20] MEDS ORDERED: Magnesium Sulfate 1 gm in D5W 1 GM/100 ML BAG IVPB ONE (23:09)
[2018-07-20] MEDS: Magnesium Sulfate 1 gm in D5W 1 GM/100 ML BAG IVPB SCH (23:13)
[2018-07-21] MEDS: Magnesium Sulfate 1 gm in D5W 1 GM/100 ML BAG IVPB SCH (06:17)
[2018-07-21] MEDS: Albuterol-Ipratrop 3 mg / 0.5 (3 ml) UD INH SCH ×4 (08:15→19:58)
--- NOTE | 2018-07-21 08:39 | CP.PCM.PN ---
Subjective - Date & Time of Evaluation Date of Evaluation: 07/21/18 Time of Evaluation: 07:00 - Subjective Subjective: PGY2 Progress Note for Dr. Mix Patient is a 37 year old female with PMHx of asthma, anxiety, PUD, OCD, depression, endometriosis, and panic attacks who presents for slurred speech and right sided arm and leg pain and weakness. Patient says yesterday she was cleaning and had an allergic reaction with facial swelling. She took benadryl and prednisone and the symptoms resolved. Then last night patient started falling asleep while she was going to the bathroom and was slurring her speech. She had right sided weakness so her family called 911. Today her speech is normal, but she says she still feels right sided weakness as well as generalized muscle aches and pains. Patient says she also gets dizzy with certain head positions and often feels like she is going to pass out. Patient also complains of darker urine with an "acidic" odor recently. Patient admits to generalized abdominal pain and bloating, but no dysuria. PMHx: asthma, anxiety, PUD, OCD, depression, endometriosis, and panic attacks SurgHx: tonsillectomy, rhinoplasty SocialHx: denies EtOH use, denies tobacco use, denies illicit drug use; lives at home with boyfriend and 2 children; unemployed FamilyHx: Mom- CHF (alive); Dad- CHF, asthma, DM, HTN, COPD (alive) Allergies: corn, eggs, milk, peanuts, seafood, shellfish, soy, wheat Meds: from prior admission (patient is unsure): Risperidone 1mg PO HS, Klonipin 2mg PO daily, Singulair 10mg PO HS, Paxil 37.5 mg PO daily, Protonix 40mg PO daily, Advair 250/50, Flonase, Albuterol neublizer Objective - Vital Signs/Intake and Output Vital Signs (last 24 hours): Temp Pulse Resp BP Pulse Ox 98.3 F 75 16 102/62 97 07/21/18 06:23 07/21/18 06:23 07/21/18 06:23 07/21/18 06:23 07/21/18 06:23 - Medications Medications: Current Medications Albuterol/Ipratropium (Duoneb 3 Mg/0.5 Mg (3 Ml) Ud) 3 ml INH RQ4 AMRIT Aspirin (Aspirin Chewable) 81 mg PO DAILY [facility] Enoxaparin Sodium (Lovenox) 40 mg SC DAILY [facility] Rosuvastatin Calcium (Crestor) 10 mg PO HS [facility] - Labs Labs: 07/20/18 22:36 07/20/18 22:36 PT 11.5 SECONDS (9.7-12.2) 07/20/18 22:36 INR 1.1 07/20/18 22:36 APTT 30 SECONDS (21-34) 07/20/18 22:36 - Constitutional Appears: Non-toxic, No Acute Distress - Head Exam Head Exam: ATRAUMATIC, NORMAL INSPECTION, NORMOCEPHALIC - Eye Exam Eye Exam: EOMI, Normal appearance - ENT Exam ENT Exam: Mucous Membranes Moist - Cardiovascular Exam Cardiovascular Exam: REGULAR RHYTHM, RRR, +S1, +S2 - GI/Abdominal Exam GI & Abdominal Exam: Soft, Normal Bowel Sounds. absent: Tenderness - Extremities Exam Extremities Exam: Normal Inspection. absent: Pedal Edema - Neurological Exam Neurological Exam: Alert, Awake, Oriented x3 Neuro motor strength exam: Left Upper Extremity: 4, Right Upper Extremity: 3, Left Lower Extremity: 4, Right Lower Extremity: 3 - Psychiatric Exam Psychiatric exam: Anxious - Skin Skin Exam: Intact, Normal Color, Warm Assessment and Plan - Assessment and Plan (Free Text) Assessment: Right Sided Weakness R/O CVA, code stroke called f/u neuro recommendations ASA 325mg po given Head CT: no acute intracranial abnormality. Head/ Neck CTA: 1. no evidence of endoluminal thrombus, occlusion, or definite significant stenosis in the intracranial arteries. 2. no evidence of hemodynamically significant stenosis in the internal carotid arteries. 3. patent bilateral vertebral arteries Carotid Doppler: negative b/l ASA 81mg po daily Lipid panel: Triglycerides 181, Cholesterol 155, LDL 75, HDL 62 Troponin I: neg x 2 Crestor 10mg po HS Asthma Cxray: findings may be related to reactive small airway disease. No focal consolidation. Duonebs prn Q4 hours Singulair 10mg PO HS Breo-Ellipta 200-25mcg Urine Color and Odor Change f/u UA and urine culture Anxiety/depression Paxil 30 mg PO daily Risperidone 1mg PO HS Xanax .5mg po BID PRN Prophylactic Measures Pepcid 20mg PO daily SCDS Lovenox 40mg SC daily Regular diet Management as per Dr. Mix
--- NOTE | 2018-07-21 08:43 | RAD ---
Date of service: 07/20/2018 HISTORY: Code Stroke COMPARISON: 11/14/2017. FINDINGS: LUNGS: There are increased streaky and nodular opacities in the lungs. No focal consolidation. There is linear scarring in the right middle lobe. PLEURA: No significant pleural effusion identified, no pneumothorax apparent. CARDIOVASCULAR: Normal. OSSEOUS STRUCTURES: No significant abnormalities. VISUALIZED UPPER ABDOMEN: Normal. OTHER FINDINGS: None. IMPRESSION: Findings may be related to reactive small airway disease. No focal consolidation.
--- NOTE | 2018-07-21 09:01 | CT ---
Date of service: 07/20/2018 PROCEDURE: CT HEAD WITHOUT CONTRAST. HISTORY: Right-sided numbness and weakness. Right-sided neck pain. COMPARISON: 08/05/2015 TECHNIQUE: Axial computed tomography images were obtained through the head/brain without intravenous contrast. Radiation dose: Total exam DLP = 1043 mGy-cm. This CT exam was performed using one or more of the following dose reduction techniques: Automated exposure control, adjustment of the mA and/or kV according to patient size, and/or use of iterative reconstruction technique. FINDINGS: HEMORRHAGE: No intracranial hemorrhage. BRAIN: No mass effect or edema. No atrophy or chronic microvascular ischemic changes. VENTRICLES: Unremarkable. No hydrocephalus. CALVARIUM: Unremarkable. PARANASAL SINUSES: Unremarkable as visualized. No significant inflammatory changes. MASTOID AIR CELLS: Unremarkable as visualized. No inflammatory changes. OTHER FINDINGS: None. IMPRESSION: No acute intracranial abnormality. If symptoms persists, consider correlation with MRI. These findings were preliminarily reported at 10:49 p.m. on 07/20/[address] Vishal Drew from [facility].
[2018-07-21 09:27] LABS: BASO # 0.1 K/uL (0.0-0.2); BASO % 0.6 % (0.0-2.0); EOS # 0.1 K/uL (0.0-0.7); EOS % 0.8 % (0.0-4.0); HEMOGLOBIN 13.8 g/dL (11.0-16.0); LYMPH # 2.8 K/uL (1.0-4.3); LYMPH % 18.1 % (20.0-40.0); MEAN CORPUSCULAR HEMOGLOBIN 30.8 pg (27.0-31.0); MEAN CORPUSCULAR HGB CONC 34.3 g/dL (33.0-37.0); MONO # 0.9 K/uL (0.0-0.8); MONO % 5.6 % (0.0-10.0); NEUT # 11.6 K/uL (1.8-7.0); NEUT % 74.9 % (50.0-75.0); RBC 4.48 Mil/uL (3.80-5.20); RED CELL DISTRIBUTION WIDTH 13.7 % (11.5-14.5); WHITE BLOOD COUNT 15.4 K/uL (4.8-10.8)
[2018-07-21 09:36] LABS: ALB/GLOB RATIO 1.4 (1.0-2.1); ALBUMIN 4.1 g/dL (3.5-5.0); ALT/SGPT 26 U/L (9-52); AST/SGOT 13 U/L (14-36); BLOOD UREA NITROGEN 12 mg/dL (7-17); GFR NON-AFRICAN AMERICAN > 60
[2018-07-21] MEDS ORDERED: Fluticasone-Vilanterol 200/25mcg Diskus INH SCH (09:45)
[2018-07-21] MEDS: Enoxaparin 40 mg Syringe SC SCH (11:00)
--- NOTE | 2018-07-21 13:14 | CT ---
PROCEDURE: CTA HEAD AND NECK WITH CONTRAST HISTORY: R sided numbness/weakness, R neck pain COMPARISON: None available. TECHNIQUE: Initial noncontrast head CT was performed. Subsequently, CT angiogram of the head and neck were performed after the intravenous administration of 80 mL of Omnipaque 350. Contiguous 1.5mm thick images were obtained in the axial plane of the neck. 2-D coronal and sagittal MPR images were obtained. Imaging postprocessing was performed with 3-D images also obtained. A delayed contrast head CT was also obtained. This CT exam was performed using one or more of the following dose reduction techniques: Automated exposure control, adjustment of the mA and/or kV according to patient size, and/or use of iterative reconstruction technique. Contrast dose: 100 mL Visipaque Radiation dose: Total exam DLP = 583.50 mGy-cm. FINDINGS: HEAD: Right: The intracranial internal carotid artery, and anterior and middle cerebral arteries are widely patent. Left: The intracranial internal carotid artery, and anterior and middle cerebral arteries are widely patent. Posterior circulation: The visualized intracranial vertebral arteries, basilar artery and posterior cerebral arteries are widely patent. There is no endoluminal filling defect to suggest thrombus. There is no intracranial saccular aneurysm. NECK: There is a three vessel aortic arch. There is no stenosis at the origins of the great vessels at the level of the aortic arch. Right Carotid: On the right, the common carotid, internal carotid and external carotid arteries are widely patent. There is no hemodynamically significant stenosis in the internal carotid artery by NASCET criteria. Left Carotid: On the left, the common carotid, internal carotid and external carotid arteries are widely patent. There is no hemodynamically significant stenosis in the internal carotid artery by NASCET criteria. The vertebral arteries are widely patent. The right vertebral artery is hypoplastic, an anatomic variant. The visualized soft tissues of the neck are normal. The visualized brain and cervical spine are within normal limits. The lung apices are clear. IMPRESSION: 1. No evidence of endoluminal thrombus,occlusion or definite significant stenosis in the intracranial arteries. 2. No evidence of hemodynamically significant stenosis in the internal carotid arteries. 3. Patent bilateral vertebral arteries. A preliminary report was provided by [facility].
[2018-07-21 14:38] LABS: CK-MB 0.32 ng/mL (0.0-3.38)
--- NOTE | 2018-07-21 16:42 | CP.PCM.CON ---
History of Present Illness - History of Present Illness History of Present Illness: Neurology Consultation Note: Mrs. Porras is a 37-year-old woman with a past medical history of anxiety, asthma, liver disease, who states that yesterday while she was on the toilet, she felt confused and had numbness on the right side. She states that she felt like she was "swollen" all over and had an allergic reaction. This numbness progressed to complete paralysis and her confusion progressed to speech difficulty. Her family witnessed this and brought her to the ED. Her symptoms resolved. Her speech became fluent and she had no objective weakness on exam, but she continued to complain of right side numbness. Her NIHSS was 2. She was not a good candidate for IV tPA due to minimal and rapidly improving symptoms. Today, the patient is basically at baseline, but continues to complain of right side weakness/numbness. Her speech is normal. Review of Systems - Constitutional Constitutional: absent: As Per HPI, Anorexia, Chills, Daytime Sleepiness, Excessive Sweating, Fatigue, Fever, Frequent Falls, Headache, Increased Appetite, Lethargy, Malaise, Night Sweats, Snoring, Sleep Apnea, Weight Gain, Weight Loss, Weakness, Other - EENT Eyes: absent: As Per HPI, Blind Spots, Blurred Vision, Change in Vision, D ecreased Night Vision, Diplopia, Discharge, Dry Eye, Exophthalmos, Floaters, Irritation, Itchy Eyes, Loss of Peripheral Vision, Pain, Photophobia, Requires Corrective Lenses, Sees Flashes, Spots in Vision, Tunnel Vision, Other Visual Disturbances, Loss of Vision, Other Ears: absent: As Per HPI, Decreased Hearing, Ear Discharge, Ear Pain, Tinnitus, Abnormal Hearing, Disequilibrium, Dizziness, Other Nose/Mouth/Throat: absent: As Per HPI, Epistaxis, Nasal Congestion, Nasal Discharge, Nasal Obstruction, Nasal Trauma, Nose Pain, Post Nasal Drip, Sinus Pain, Sinus Pressure, Bleeding Gums, Change in Voice, Dental Pain, Dry Mouth, Dysphagia, Halitosis, Hoarsness, Lip Swelling, Mouth Lesions, Mouth Pain, Odynophagia, Sore Throat, Throat Swelling, Tongue Swelling, Facial Pain, Neck Pain, Neck Mass, Other - Breasts Breasts: absent: As Per HPI, Change in Shape, Mass, Pain, Nipple Discharge, Nipple Inversion, Skin Changes, Swelling, Other - Cardiovascular Cardiovascular: absent: As Per HPI, Acrocyanosis, Chest Pain, Chest Pain at Rest, Chest Pain with Activity, Claudication, Diaphoresis, Dyspnea, Dyspnea on Exertion, Edema, Irregular Heart Rhythm, Pain Radiating to Arm/Neck/Jaw, Leg Edema, Leg Ulcers, Lightheadedness, Orthopnea, Palpitations, Paroxysmal Nocturnal Dyspnea, Pedal Edema, Radiating Pain, Rapid Heart Rate, Slow Heart Rate, Syncope, Other - Respiratory Respiratory: absent: As Per HPI, Cough, Dyspnea, Hemoptysis, Dyspnea on Exertion, Wheezing, Snoring, Stridor, Pain on Inspiration, Chest Congestion, Excessive Mucous Production, Change in Mucous Color, Pain with Coughing, Other - Gastrointestinal Gastrointestinal: absent: As Per HPI, Abdominal Pain, Belching, Bloating, Change in Bowel Habits, Change in Stool Character, Coffee Ground Emesis, Constipation, Cramping, Diarrhea, Dyspepsia, Dysphagia, Early Satiety, Excessive Flatus, Fecal Incontinence, Heartburn, Hematemesis, Hematochezia, Loose Stools, Melena, Nausea, Odynophagia, Temesmus, Vomiting, Other - Genitourinary Genitourinary: absent: As Per HPI, Change in Urinary Stream, Difficulty Urinating, Dysuria, Flank Pain, Hematuria, Pyuria, Nocturia, Urinary Incontinence, Urinary Frequency, Urinary Hesitance, Urinary Urgency, Voiding Freq/Small Amts, Freq UTI, Hx Renal/Bladder Calculi, Hx /Renal Surgery, Bladder Distension, Other - Reproductive: Female Reproductive:Female: absent: As Per HPI, Amenorrhea, Amenorrhea/ Control, Currently Menstual, Cycle <21 Days, Cycle >35 Days, Cycle Variable, Menses 1-7 Days, Menses >/= 8 Days, Menses Variable, Cycle > 4 Weeks Between, No Menses for 6 Months, Heavy Menses, Light Menses, Normal Menses, Spotting Between Cycles, S/P Hysterectomy, Menopausal, Post Menopausal, Premenarche, Abnormal Vaginal Bleeding, Dysmenorrhea, Dyspareunia, Genital Lesions, Genital Pruritis, Pelvic Pain, Prolapse Symptoms, Sexual Dysfunction, Vaginal Discharge, Vaginal Dryness, Vaginal Odor, Vaginal Pruritis, Other - Musculoskeletal Musculoskeletal: absent: As Per HPI, Abnormal Gait, Arthralgias, Atrophy, Back Pain, Deformity, Joint Swelling, Limited Range of Motion, Loss of Height, Muscle Cramps, Muscle Weakness, Myalgias, Neck Pain, Numbness, Radiating Pain into Limb, Stiffness, Tingling, Other - Integumentary Integumentary: absent: As Per HPI, Acne, Alopecia, Bleeding Lesions, Change in Hair, Change in Nails, Change in Pigmentation, Changing Lesions, Dry Skin, Erythema, Furuncle, Hirsutism, Lesions, New Lesions, Non-Healing Lesions, Photosensitivity, Pruritus, Rash, Skin Pain, Skin Ulcer, Sores, Striae, Swe lling, Unusual Bruising, Wounds, Jaundice, Other - Neurological Neurological: As Per HPI - Psychiatric Psychiatric: As Per HPI - Endocrine Endocrine: absent: As Per HPI, Change in Body Appearance, Change in Libido, Cold Intolorance, Deepening of Voice, Excessive Sweating, Fatigue, Flushing, Heat Intolorance, Increase in Ring/Shoe/Hat Size, Palpitations, Polydipsia, Polyphagia, Polyuria, Other - Hematologic/Lymphatic Hematologic: absent: As Per HPI, Easy Bleeding, Easy Bruising, Lymphadenopathy, Other Past Patient History - Infectious Disease Hx of Infectious Diseases: None - Tetanus Immunizations Tetanus Immunization: Unknown - Past Medical History & Family History Past Medical History?: Yes - Past Social History Smoking Status: Never Smoked - CARDIAC Hx Cardiac Disorders: No Hx Hypertension: No - PULMONARY Hx Respiratory Disorders: Yes Hx Asthma: Yes ([id number]) Hx Pneumonia: Yes - NEUROLOGICAL Hx Neurological Disorder: No Hx Seizures: No - HEENT Hx HEENT Problems: Yes Other/Comment: HAS GLASSES NEW RX DOESNT REALLY WEAR - RENAL Hx Chronic Kidney Disease: No - ENDOCRINE/METABOLIC Hx Endocrine Disorders: No - HEMATOLOGICAL/ONCOLOGICAL Hx Blood Disorders: No Hx Human Immunodeficiency Virus (HIV): No - INTEGUMENTARY Hx Dermatological Problems: No - MUSCULOSKELETAL/RHEUMATOLOGICAL Hx Musculoskeletal Disorders: No Hx Falls: No - GASTROINTESTINAL Hx Gastrointestinal Disorders: Yes Hx Colitis: Yes Hx Gastroesophageal Reflux: Yes - GENITOURINARY/GYNECOLOGICAL Hx Genitourinary Disorders: No Hx Sexually Transmitted Disorders: No - PSYCHIATRIC Hx Psychophysiologic Disorder: Yes Hx Anxiety: Yes Hx Depression: Yes Hx Substance Use: No - SURGICAL HISTORY Hx Surgeries: Yes Hx Appendectomy: Yes Hx Tonsillectomy: Yes - ANESTHESIA Hx Anesthesia: Yes Hx Anesthesia Reactions: No Hx Malignant Hyperthermia: No Has any member of the family had a problem w/ anesthesia?: No Meds Allergies/Adverse Reactions: Allergies Allergy/AdvReac Type Severity Reaction Status Date / Time corn Allergy NAUSEA Verified 07/20/18 22:01 EGG Allergy NAUSEA Verified 07/20/18 22:01 milk Allergy NAUSEA Verified 07/20/18 22:01 peanut Allergy RASH Verified 07/20/18 22:01 shellfish derived Allergy ANAPHYLAXIS Verified 07/20/18 22:01 soy Allergy RASH Verified 07/20/18 22:01 trees Allergy Severe RASH Uncoded 07/20/18 22:01 dust Allergy SHORTNESS Uncoded 07/20/18 22:01 OF BREATH grass Allergy RASH Uncoded 07/20/18 22:01 novacaine Allergy ANAPHYLAXIS Uncoded 07/20/18 22:01 pets Allergy SHORTNESS Uncoded 07/20/18 22:01 OF BREATH pollen Allergy CONGESTION Uncoded 07/20/18 22:01 SEAFOOD Allergy ANAPHYLAXIS Uncoded 07/20/18 22:01 - Medications Medications: Current Medications Albuterol/Ipratropium (Duoneb 3 Mg/0.5 Mg (3 Ml) Ud) 3 ml INH RQ4 [facility] Last Admin: 07/21/18 12:30 Dose: 3 ml Alprazolam (Xanax) 0.5 mg PO BID PRN PRN Reason: Anxiety Aspirin (Aspirin Chewable) 81 mg PO DAILY [facility] Last Admin: 07/21/18 11:00 Dose: 81 mg Enoxaparin Sodium (Lovenox) 40 mg SC DAILY [facility] Last Admin: 07/21/18 11:00 Dose: 40 mg Famotidine (Pepcid) 20 mg PO DAILY [facility] Last Admin: 07/21/18 12:01 Dose: 20 mg Fluticasone/Vilanterol (Breo Ellipta 200-25 Mcg Inh) 1 puff INH RQD [facility] Influenza Virus Vaccine (Fluzone Quad [id number]) 60 mcg IM .ONCE ONE Stop: 07/22/18 10:01 Montelukast Sodium (Singulair) 10 mg PO DAILY [facility] Last Admin: 07/21/18 11:00 Dose: 10 mg Paroxetine HCl (Paxil) 30 mg PO DAILY [facility] Risperidone (Risperdal Tab) 1 mg PO DAILY [facility] Rosuvastatin Calcium (Crestor) 10 mg PO [facility] Physical Exam - Constitutional Appears: Well - Head Exam Head Exam: ATRAUMATIC, NORMAL INSPECTION, NORMOCEPHALIC - Eye Exam Eye Exam: EOMI, Normal appearance, PERRL - ENT Exam ENT Exam: Mucous Membranes Moist, Normal Exam - Neck Exam Neck exam: Positive for: Normal Inspection - Respiratory Exam Respiratory Exam: Clear to Auscultation Bilateral, NORMAL BREATHING PATTERN - Cardiovascular Exam Cardiovascular Exam: REGULAR RHYTHM, +S1, +S2 - GI/Abdominal Exam GI & Abdominal Exam: Normal Bowel Sounds, Soft. absent: Tenderness - Rectal Exam Rectal Exam: Deferred - Extremities Exam Extremities exam: Positive for: normal inspection - Back Exam Back exam: NORMAL INSPECTION - Neurological Exam Neurological exam: Abnormal Gait, Alert, CN II-XII Intact, Oriented x3, Reflexes Normal Additional comments: Right side decreased sensation over the arm and leg. No facial droop noted. Strength is symmetrical. Gait is wide-based. NIHSS = 2. Results - Vital Signs Recent Vital Signs: Last Vital Signs Temp 98.2 F 07/21/18 15:00 Pulse 83 07/21/18 15:09 Resp 20 07/21/18 15:00 BP 117/83 07/21/18 15:00 Pulse Ox 100 07/21/18 15:00 - Labs Result Diagrams: 07/21/18 09:16 07/21/18 09:16 Labs: Laboratory Results - last 24 hr 07/20/18 07/20/18 07/20/18 22:30 22:36 22:36 WBC 16.6 H RBC 4.59 Hgb 14.5 Hct 40.9 MCV 88.9 MCH 31.5 H MCHC 35.4 RDW 13.5 Plt Count 365 MPV 7.6 Neut % (Auto) 77.1 H Lymph % (Auto) 17.0 L Preble % (Auto) 4.6 Eos % (Auto) 0.6 Baso % (Auto) 0.7 Neut # (Auto) 12.8 H Lymph # (Auto) 2.8 Preble # (Auto) 0.8 Eos # (Auto) 0.1 Baso # (Auto) 0.1 PT 11.5 INR 1.1 APTT 30 Sodium Potassium Chloride Carbon Dioxide Anion Gap BUN Creatinine Est GFR ( Amer) Est GFR (Non-Af Amer) POC Glucose (mg/dL) 112 H Random Glucose Hemoglobin A1c Calcium Phosphorus Magnesium Total Bilirubin AST ALT Alkaline Phosphatase Total Creatine Kinase CK-MB (Mass) Troponin I Total Protein Albumin Globulin Albumin/Globulin Ratio Triglycerides Cholesterol LDL Cholesterol Direct HDL Cholesterol Blood Type Antibody Screen 07/20/18 07/20/18 07/20/18 22:36 22:36 22:36 WBC RBC Hgb Hct MCV MCH MCHC RDW Plt Count MPV Neut % (Auto) Lymph % (Auto) Preble % (Auto) Eos % (Auto) Baso % (Auto) Neut # (Auto) Lymph # (Auto) Preble # (Auto) Eos # (Auto) Baso # (Auto) PT INR APTT Sodium 143 Potassium 3.7 Chloride 105 Carbon Dioxide 23 Anion Gap 18 BUN 12 Creatinine 0.8 Est GFR ( Amer) > 60 Est GFR (Non-Af Amer) > 60 POC Glucose (mg/dL) Random Glucose 127 H Hemoglobin A1c 5.1 Calcium 9.0 Phosphorus Magnesium Total Bilirubin 0.7 AST 18 ALT 24 Alkaline Phosphatase 69 Total Creatine Kinase CK-MB (Mass) Troponin I < 0.0120 Total Protein 7.3 Albumin 4.2 Globulin 3.1 Albumin/Globulin Ratio 1.4 Triglycerides 181 H Cholesterol 155 LDL Cholesterol Direct 75 HDL Cholesterol 62 Blood Type O POSITIVE Antibody Screen Negative 07/21/18 07/21/18 07/21/18 09:16 09:16 14:03 WBC 15.4 H RBC 4.48 Hgb 13.8 Hct 40.3 MCV 90.0 MCH 30.8 MCHC 34.3 RDW 13.7 Plt Count 349 MPV 8.0 Neut % (Auto) 74.9 Lymph % (Auto) 18.1 L Preble % (Auto) 5.6 Eos % (Auto) 0.8 Baso % (Auto) 0.6 Neut # (Auto) 11.6 H Lymph # (Auto) 2.8 Preble # (Auto) 0.9 H Eos # (Auto) 0.1 Baso # (Auto) 0.1 PT INR APTT Sodium 140 Potassium 4.1 Chloride 106 Carbon Dioxide 23 Anion Gap 16 BUN 12 Creatinine 0.8 Est GFR ( Amer) > 60 Est GFR (Non-Af Amer) > 60 POC Glucose (mg/dL) Random Glucose 108 H Hemoglobin A1c Calcium 9.0 Phosphorus 3.3 Magnesium 2.1 Total Bilirubin 0.8 AST 13 L D ALT 26 Alkaline Phosphatase 67 Total Creatine Kinase 48 CK-MB (Mass) 0.32 Troponin I < 0.0120 < 0.0120 Total Protein 7.1 Albumin 4.1 Globulin 3.0 Albumin/Globulin Ratio 1.4 Triglycerides Cholesterol LDL Cholesterol Direct HDL Cholesterol Blood Type Antibody Screen Assessment & Plan (1) Hemiparesthesia Assessment and Plan: This could be due to an ischemic event in the brain, but it is difficult to tell and she does not have any major risk factors for stroke. I recommend the followin. Telemetry 2. MRI brain without contrast 3. Echocardiogram with bubble study 4. Carotid ultrasounds bilaterally. 5. Check hemoglobin A-1 C, lipid panel, ESR, CRP, PHILL, B12, folate, TSH, vitamin D levels, Hypercoagulable workup to include factor V Leiden mutation, activated Protein C resistance, Prothrombin gene mutation, Factor VIII activity, antithrombin III activity, protein C , protein S levels, lupus anticoagulant activity, anti-cardiolipin antibodies, beta-2 glycoprotein antibodies, homocysteine and MMA levels 6. Plavix 75 mg daily. Baby aspirin 81 mg daily. 7. Q 2 hour neuro-checks. 8. Statin for goal LDL less than 70. 9. Permissive hypertension, do not treat blood pressure less than 220/110 (may start to normalize 48-hours after symptom onset). 10. IV fluids normal saline at 100 mL per hour. 11. Case management consult Please do not hesitate to call back with any new developments, data updates or questions. Thank you for the opportunity to participate in the care of this patient. At your request video follow up evaluation can be completed / arranged, please have video cart at bedside if requested. Status: Acute
[2018-07-21 17:29] LABS: SQUAMOUS EPITHIAL 2 /hpf (0-5); URINE BILIRUBIN NEGATIVE (NEGATIVE); URINE BLOOD NEGATIVE (NEGATIVE); URINE CLARITY Clear (Clear); URINE COLOR Yellow (YELLOW); URINE GLUCOSE (UA) NORMAL (Normal); URINE LEUKOCYTE ESTERASE 1+ Leu/uL (Negative); URINE PROTEIN 1+ mg/dL (NEGATIVE)
--- NOTE | 2018-07-21 23:02 | CARD ---
APPROVED REPORT Date of service: 07/20/2018 EKG Measurement Heart [id number] <Conclusion> Normal sinus rhythm Normal ECG
[2018-07-22] MEDS: Albuterol-Ipratrop 3 mg / 0.5 (3 ml) UD INH SCH ×5 (00:13→16:35)
[2018-07-22 07:16] LABS: BASO # 0.1 K/uL (0.0-0.2); BASO % 0.8 % (0.0-2.0); EOS # 0.2 K/uL (0.0-0.7); EOS % 1.9 % (0.0-4.0); LYMPH # 4.6 K/uL (1.0-4.3); LYMPH % 40.8 % (20.0-40.0); MEAN CELL VOLUME 90.3 fL (81.0-99.0); MEAN CORPUSCULAR HEMOGLOBIN 31.3 pg (27.0-31.0); MEAN CORPUSCULAR HGB CONC 34.7 g/dL (33.0-37.0); MEAN PLATELET VOLUME 7.9 fL (7.2-11.7); MONO # 0.8 K/uL (0.0-0.8); MONO % 6.8 % (0.0-10.0); NEUT # 5.6 K/uL (1.8-7.0); NEUT % 49.7 % (50.0-75.0); NRBC % 0.1 % (0.0-2.0); RBC 4.15 Mil/uL (3.80-5.20); RED CELL DISTRIBUTION WIDTH 13.4 % (11.5-14.5); WHITE BLOOD COUNT 11.2 K/uL (4.8-10.8)
--- NOTE | 2018-07-22 07:28 | HP ---
HISTORY OF PRESENT ILLNESS: A 37-year-old female, admitted to the hospital with complaint of numbness of the left side of the body, numbness of the mouth. The patient came to the ER, advised admission for possible TIA. PAST MEDICAL HISTORY: Asthma, use inhaler. PHYSICAL EXAMINATION: GENERAL: The patient is awake, alert, and oriented . VITAL SIGNS: Temperature 98, pulse 90. HEENT: Within normal limits. NECK: Supple. LUNGS: Symmetrical. HEART: Regular. ABDOMEN: Soft. EXTREMITIES: No edema sensation. The patient suffers from transient ischemic attack. The patient is to bed rest, neuro check. Varsha Mix MD
[2018-07-22 07:31] LABS: ALB/GLOB RATIO 1.3 (1.0-2.1); ALBUMIN 3.6 g/dL (3.5-5.0); ALT/SGPT 24 U/L (9-52); AST/SGOT 13 U/L (14-36); BLOOD UREA NITROGEN 18 mg/dL (7-17); CALCIUM 8.5 mg/dl (8.6-10.4); GFR NON-AFRICAN AMERICAN > 60
--- NOTE | 2018-07-22 07:37 | CP.PCM.PN ---
<Kraig Silver - Last Filed: 07/22/18 22:12> Subjective - Date & Time of Evaluation Date of Evaluation: 07/22/18 Time of Evaluation: 07:32 - Subjective Subjective: PGY1 Neurology Progress Note for Dr. Jay Patient seen and evaluated at bedside today. Of note, patient was not able to tolerate MRI, as she felt anxious and began to panic. Patient says she would like to undergo open MRI instead if possible. Patient reports no other complaints. Patient admits to continued dizziness, and paresthesias, however ROS otherwise negative for slurred speech, blurry vision, headache, double vision, weakness, chest pain, shortness of breath, nausea, and/or vomiting. Objective - Vital Signs/Intake and Output Vital Signs (last 24 hours): Temp Pulse Resp BP Pulse Ox 98.4 F 68 20 113/77 98 07/22/18 00:00 07/22/18 00:00 07/22/18 00:00 07/22/18 00:00 07/22/18 00:00 - Medications Medications: Current Medications Albuterol/Ipratropium (Duoneb 3 Mg/0.5 Mg (3 Ml) Ud) 3 ml INH RQ4 [facility] Last Admin: 07/22/18 06:19 Dose: Not Given Alprazolam (Xanax) 0.5 mg PO BID PRN PRN Reason: Anxiety Last Admin: 07/21/18 21:43 Dose: 0.5 mg Aspirin (Aspirin Chewable) 81 mg PO DAILY [facility] Last Admin: 07/21/18 11:00 Dose: 81 mg Enoxaparin Sodium (Lovenox) 40 mg SC DAILY [facility] Last Admin: 07/21/18 11:00 Dose: 40 mg Famotidine (Pepcid) 20 mg PO DAILY [facility] Last Admin: 07/21/18 12:01 Dose: 20 mg Fluticasone/Vilanterol (Breo Ellipta 200-25 Mcg Inh) 1 puff INH RQD [facility] Influenza Virus Vaccine (Fluzone Quad [id number]) 60 mcg IM .ONCE ONE Stop: 07/22/18 10:01 Montelukast Sodium (Singulair) 10 mg PO DAILY [facility] Last Admin: 07/21/18 11:00 Dose: 10 mg Paroxetine HCl (Paxil) 30 mg PO DAILY [facility] Risperidone (Risperdal Tab) 1 mg PO DAILY [facility] Rosuvastatin Calcium (Crestor) 10 mg PO HS [facility] Last Admin: 07/21/18 21:43 Dose: 10 mg - Labs Labs: 07/22/18 06:59 07/22/18 06:59 PT 11.5 SECONDS (9.7-12.2) 07/20/18 22:36 INR 1.1 07/20/18 22:36 APTT 30 SECONDS (21-34) 07/20/18 22:36 - Additional Findings Additional findings: - Constitutional Appears: Well, No Acute Distress - Head Exam Head Exam: ATRAUMATIC, NORMAL INSPECTION - Eye Exam Eye Exam: EOMI, Normal appearance - ENT Exam ENT Exam: Mucous Membranes Moist - Respiratory Exam Respiratory Exam: Clear to Ausculation Bilateral, NORMAL BREATHING PATTERN. absent: Prolonged Expiratory Phase, Rhonchi, Wheezes, Respiratory Distress - Cardiovascular Exam Cardiovascular Exam: REGULAR RHYTHM, +S1, +S2. absent: Murmur - GI/Abdominal Exam GI & Abdominal Exam: Soft, Normal Bowel Sounds. absent: Guarding, Rigid, Tenderness - Extremities Exam Extremities Exam: Normal Inspection. absent: Calf Tenderness, Joint Swelling, Pedal Edema, Tenderness - Neurological Exam Neurological Exam: Alert, Awake, Oriented x3 Neuro motor strength exam: Left Upper Extremity: 5, Right Upper Extremity: 5, Left Lower Extremity: 5, Right Lower Extremity: 5 - Psychiatric Exam Psychiatric exam: Normal Affect - Skin Skin Exam: Normal Color Assessment and Plan - Assessment and Plan (Free Text) Assessment: (1) Hemiparesthesia Assessment and Plan: This could be due to an ischemic event in the brain, but it is difficult to tell and she does not have any major risk factors for stroke. CTA Head/Neck official read: no evidence of endoluminal thrombus, occlusion or definite significant stenosis in the intracranial arteries. No evidence of hemodynamically significant stenosis in the ICA b/l. Patent vertebral arteries. The following was recommended: 1. Telemetry 2. MRI brain without contrast (could not obtain due to patient's anxiety and panic while attempting to undergo imaging) 3. Echocardiogram with bubble study 4. Carotid ultrasounds bilaterally: obtained (results pending) 5. Check hemoglobin A-1 C, lipid panel, ESR, CRP, PHILL, B12, folate, TSH, vitamin D levels, Hypercoagulable workup to include factor V Leiden mutation, activated Protein C resistance, Prothrombin gene mutation, Factor VIII activity, antithrombin III activity, protein C , protein S levels, lupus anticoagulant activity, anti-cardiolipin antibodies, beta-2 glycoprotein antibodies, homocysteine and MMA levels 6. Plavix 75 mg daily. Baby aspirin 81 mg daily. 7. Q 2 hour neuro-checks. 8. Statin for goal LDL less than 70. 9. Permissive hypertension, do not treat blood pressure less than 220/110 (may start to normalize 48-hours after symptom onset). 10. IV fluids normal saline at 100 mL per hour. 11. Case management consult 12. Repeat CT without contrast 07/22/18: Normal CT of the Head. No evidence of acute infarct. No intracranial hemorrhage. No change from 07/20/2018. 13. Follow-up with Dr. Jay's office in 2 weeks to go over results of coag mutations and once MRI is completed as an out-patient. Please do not hesitate to call back with any new developments, data updates or questions. Thank you for the opportunity to participate in the care of this patient. Patient seen and case discussed with Dr. Misty Silver PGY1 <Amadou Jay - Last Filed: 07/27/18 22:37> Objective - Vital Signs/Intake and Output Vital Signs (last 24 hours): Temp Pulse Resp BP Pulse Ox 97.8 F 80 20 102/68 97 07/22/18 15:45 07/22/18 15:45 07/22/18 15:45 07/22/18 15:45 07/22/18 15:45 - Labs Labs: 07/22/18 06:59 07/22/18 06:59 PT 11.5 SECONDS (9.7-12.2) 07/20/18 22:36 INR 1.1 07/20/18 22:36 APTT 30 SECONDS (21-34) 07/20/18 22:36 Assessment and Plan (1) Hemiparesthesia Status: Acute Attending/Attestation - Attestation I have personally seen and examined this patient.: Yes I have fully participated in the care of the patient.: Yes I have reviewed all pertinent clinical information, including history, physical exam and plan: Yes Notes (Text): 07/27/18 22:36 I agree with the assessment and plan. Will follow up with the patient in the office after current work-up and treatment.
[2018-07-22] MEDS ORDERED: Fluticasone-Vilanterol 200/25mcg Diskus INH SCH (08:00)
[2018-07-22] MEDS ORDERED: Influenza Vaccine 60 MCG/0.5 ML SYR (3 yr & up) IM ONE ×2 (10:00→12:15)
[2018-07-22] MEDS: Enoxaparin 40 mg Syringe SC SCH (11:41)
--- NOTE | 2018-07-22 12:29 | VASCLAB ---
Date of service: 07/21/2018 PROCEDURE: Carotid Duplex Exam. HISTORY: code stroke COMPARISON: None available. TECHNIQUE: Grayscale and duplex Doppler evaluation of the cervical carotid and vertebral arteries were performed. The common carotid, carotid bifurcations and cervical Internal Carotid Artery (ICA) and proximal External Carotid Artery (ECA) were evaluated. The vertebral arteries were evaluated for gross patency and flow direction. Report prepared by DANY Humphrey FINDINGS: RIGHT CAROTID ARTERIES: 1. Common Carotid Artery: No significant focal plaque formation of the right common carotid artery. Maximum Peak Systolic velocity: 67 cm/sec: End-diastolic velocity 15 cm/sec. 2. Carotid Bifurcation: plaque formation. Maximum Peak Systolic velocity: 43 cm/sec: End-diastolic velocity 11 cm/sec. 3. Internal Carotid Artery: Plaque description: 3.1. Proximal Segment: Peak systolic velocity 67 cm/sec: End-diastolic velocity 24 cm/sec - % stenosis 0-15% 3.2. Middle Segment: Peak systolic velocity 71 cm/sec: End-diastolic velocity 27 cm/sec - % stenosis 0-15% 3.3. Distal Segment: Peak systolic velocity 49 cm/sec: End-diastolic velocity 17 cm/sec - % stenosis 0-15% 4. External Carotid Artery: No significant focal plaque formation. Peak systolic velocity 81 cm/sec 5. ICA/CCA Ratio: 1.1 LEFT CAROTID ARTERIES: 1. Common Carotid Artery: No significant focal plaque formation of the left common carotid artery. Maximum Peak Systolic velocity: 67 cm/sec: End-diastolic velocity 14 cm/sec. 2. Carotid Bifurcation: plaque formation. Maximum Peak Systolic velocity: 51 cm/sec: End-diastolic velocity 14 cm/sec. 3. Internal Carotid Artery: Plaque description: 3.1. Proximal Segment: Peak systolic velocity 74 cm/sec: End-diastolic velocity 28 cm/sec - % stenosis 0-15% 3.2. Middle Segment: Peak systolic velocity 75 cm/sec: End-diastolic velocity 33 cm/sec - % stenosis 0-15% 3.3. Distal Segment: Peak systolic velocity 66 cm/sec: End-diastolic velocity 22 cm/sec - % stenosis 0-15% 4. External Carotid Artery: No significant focal plaque formation. Peak systolic velocity 81 cm/sec 5. ICA/CCA Ratio: 1.1 VERTEBRAL ARTERIES: 1. Right Vertebral Artery: The right vertebral artery flow direction is antegrade. 2. Left Vertebral Artery: The left vertebral artery flow direction is antegrade. OTHER FINDINGS: 1. Right Brachial Blood pressure: 110 mmHg. 2. Left Brachial Blood pressure: 100 mmHg. IMPRESSION: RIGHT: Duplex scan does not suggest hemodynamically significant stenosis of the right extracranial carotid arteries. LEFT: Duplex scan does not suggest hemodynamically significant stenosis of the left extracranial carotid arteries.
[2018-07-22 12:37] LABS: FOLATE > 20.0 ng/mL
--- NOTE | 2018-07-22 15:30 | CT ---
Date of service: 07/22/2018 PROCEDURE: CT HEAD WITHOUT CONTRAST. HISTORY: Repeat to rule out any changes,previous code strok COMPARISON: None available. TECHNIQUE: Axial computed tomography images were obtained through the head/brain without intravenous contrast. Radiation dose: Total exam DLP = 1013.42 mGy-cm. This CT exam was performed using one or more of the following dose reduction techniques: Automated exposure control, adjustment of the mA and/or kV according to patient size, and/or use of iterative reconstruction technique. FINDINGS: HEMORRHAGE: No intracranial hemorrhage. BRAIN: No mass effect or edema. No atrophy or chronic microvascular ischemic changes. VENTRICLES: Unremarkable. No hydrocephalus. CALVARIUM: Unremarkable. PARANASAL SINUSES: Unremarkable as visualized. No significant inflammatory changes. MASTOID AIR CELLS: Unremarkable as visualized. No inflammatory changes. OTHER FINDINGS: None. IMPRESSION: Normal CT of the Head. No evidence of acute infarct. No intracranial hemorrhage. No change from 07/20/2018.
[2018-07-22 15:55] VITALS: PULSE 80
[2018-07-22 15:59] VITALS: BP 102/68; RESP 20; TEMP 97.8; O2SAT 97
--- NOTE | 2018-07-22 16:14 | CP.PCM.PN ---
Subjective - Date & Time of Evaluation Date of Evaluation: 07/22/18 Time of Evaluation: 09:10 - Subjective Subjective: PGY 2 progress note ( Dr. Mix's service) Patient was seen and examined at bedside. Patient was resting comfortably in bed in no acute distress. Patient is with good strength upper and lower extremities bilateral. Patient denies any acute issues or complaint. Patient denies any symptoms of headache, blurry vision and mild right upper extremity weakness; however, no objective weakness exam. Patient is alert, awake and oriented with normal speech and movements. Objective - Vital Signs/Intake and Output Vital Signs (last 24 hours): Temp Pulse Resp BP Pulse Ox 97.8 F 80 20 102/68 97 07/22/18 15:45 07/22/18 15:45 07/22/18 15:45 07/22/18 15:45 07/22/18 15:45 Intake and Output: 07/22/18 07/22/18 06:59 18:59 Intake Total 360 Balance 360 - Medications Medications: Current Medications Albuterol/Ipratropium (Duoneb 3 Mg/0.5 Mg (3 Ml) Ud) 3 ml INH RQ4 [facility] Last Admin: 07/22/18 15:18 Dose: Not Given Alprazolam (Xanax) 0.5 mg PO BID PRN PRN Reason: Anxiety Last Admin: 07/21/18 21:43 Dose: 0.5 mg Aspirin (Aspirin Chewable) 81 mg PO DAILY [facility] Last Admin: 07/22/18 11:41 Dose: 81 mg Enoxaparin Sodium (Lovenox) 40 mg SC DAILY [facility] Last Admin: 07/22/18 11:41 Dose: 40 mg Famotidine (Pepcid) 20 mg PO DAILY [facility] Last Admin: 07/22/18 11:42 Dose: 20 mg Fluticasone/Vilanterol (Breo Ellipta 200-25 Mcg Inh) 1 puff INH RQD [facility] Last Admin: 07/22/18 10:00 Dose: 1 puff Montelukast Sodium (Singulair) 10 mg PO DAILY [facility] Last Admin: 07/22/18 11:41 Dose: 10 mg Paroxetine HCl (Paxil) 30 mg PO DAILY [facility] Last Admin: 07/22/18 11:41 Dose: 30 mg Risperidone (Risperdal Tab) 1 mg PO DAILY [facility] Last Admin: 07/22/18 11:41 Dose: 1 mg Rosuvastatin Calcium (Crestor) 10 mg PO HS [facility] Last Admin: 07/21/18 21:43 Dose: 10 mg - Labs Labs: 07/22/18 06:59 07/22/18 06:59 PT 11.5 SECONDS (9.7-12.2) 07/20/18 22:36 INR 1.1 07/20/18 22:36 APTT 30 SECONDS (21-34) 07/20/18 22:36 - Constitutional Appears: Well, No Acute Distress - Head Exam Head Exam: ATRAUMATIC, NORMAL INSPECTION - Eye Exam Eye Exam: EOMI, Normal appearance - ENT Exam ENT Exam: Mucous Membranes Moist - Respiratory Exam Respiratory Exam: Clear to Ausculation Bilateral, NORMAL BREATHING PATTERN. absent: Prolonged Expiratory Phase, Rhonchi, Wheezes, Respiratory Distress - Cardiovascular Exam Cardiovascular Exam: REGULAR RHYTHM, +S1, +S2. absent: Murmur - GI/Abdominal Exam GI & Abdominal Exam: Soft, Normal Bowel Sounds. absent: Guarding, Rigid, Tenderness - Extremities Exam Extremities Exam: Normal Inspection. absent: Calf Tenderness, Joint Swelling, Pedal Edema, Tenderness - Neurological Exam Neurological Exam: Alert, Awake, Oriented x3 Neuro motor strength exam: Left Upper Extremity: 5, Right Upper Extremity: 5, Left Lower Extremity: 5, Right Lower Extremity: 5 - Psychiatric Exam Psychiatric exam: Normal Affect - Skin Skin Exam: Normal Color Assessment and Plan (1) Hemiparesthesia Assessment & Plan: Right sided Neurology consult, Dr. Jay on board * Management as per recommendation Imaging/Labs/Treatment: - Head CT (07/20/18): No acute intracranial abnormality. If symptoms persists, consider correlation with MRI. - Head CT (07/22/18): Normal CT of the Head. No evidence of acute infarct. No intracranial hemorrhage. No change from 07/20/2018. - Brain MRI without contrast (07/22/18): Closed MRI not tolerable. As per primary and neurology, patient can obtain an open MRI outpatient - Carotid doppler (07/21/18): B/l duplex scan do not suggest hemodynamically significant stenosis of extracranial carotid arteries - Head/Neck CTA (07/20/18): No evidence of endoluminal thrombus,occlusion or definite significant stenosis in the intracranial arteries. 2. No evidence of hemodynamically significant stenosis in the internal carotid arteries. 3. Patent bilateral vertebral arteries. Lipid panel: Triglycerides 181, Cholesterol 155, LDL 75, HDL 62 Troponin I: neg x 2 ASA 81mg po daily Lipid panel: Triglycerides 181, Cholesterol 155, LDL 75, HDL 62 Troponin I: neg x 2 Crestor 10mg po HS Status: Acute (2) Asthma Assessment & Plan: Chest X-ray: findings may be related to reactive small airway disease. No focal consolidation. Duonebs prn Q4 hours Singulair 10mg PO HS Breo-Ellipta 200-25mcg Status: Acute (3) Psychiatric illness Assessment & Plan: Anxiety/depression Paxil 30 mg PO daily Risperidone 1mg PO HS Xanax .5mg po BID PRN Status: Acute (4) Prophylactic measure Assessment & Plan: Pepcid 20mg PO daily SCDS Lovenox 40mg SC daily Regular diet Disposition: Please discharge patient home as per Dr. Mix and clearance by Neurology Please continue your home medications prescribed by your PCP expect for Pepto- bismol, Benadryl, Simethicone and Prednisone dose pK Please start ASA 81mg PO daily Please follow up with Dr. Mix in 1-2 weeks for additional lab results done during your admission Please follow up with your PCP for an outpatient open MRI without contrast Please initiate daily exercise for 30 minutes - 1 hour Please take care Management as per Dr. Mix Status: Acute
[2018-07-22] MEDS ORDERED: Influenza Vaccine 60 mcg/0.5 mL SYR (4YR UP) IM ONE (16:45)
--- NOTE | 2018-07-22 19:18 | CARD ---
APPROVED REPORT Date of service: 07/22/2018 EXAM: Two-dimensional and M-mode echocardiogram with Doppler and color Doppler. 2D DIMENSIONS IVSd1.0 (0.7-1.1cm)Aortic Root (2D)2.9 (2.0-3.7cm) LVDd3.6 (3.9-5.9cm)PWd1.2 (0.7-1.1cm) LA Xxuttw24 (18-58mL)LVDs2.5 (2.5-4.0cm) FS (%) 29.8 %LVEF (%)65.0 (>50%) LVEF (Perez's)71.28 %IVC0.00 cm M-Mode DIMENSIONS RVDd2.11 (2.1-3.2cm)Left Atrium (MM)3.06 (2.5-4.0cm) IVSd0.83 (0.7-1.1cm)Aortic Root2.88 (2.2-3.7cm) LVDd4.32 (4.0-5.6cm)Aortic Cusp Exc.1.99 (1.5-2.0cm) PWd0.81 (0.7-1.1cm)FS (%) 38 % LVDs2.68 (2.0-3.8cm)LVEF (%)68 (>50%) Mitral Valve MV E Egzikzuz35.7cm/sMV A Sykuzuhq26.5cm/sE/A ratio1.2 TDI Lateral E' Peak V10.48cm/sMedial E' Peak V9.45cm/sE/Lateral E'6.8 E/Medial E'7.6 Tricuspid Valve TR Peak Vfkhcdcc598ar/sTR Peak Gr.[id number] <Conclusion> normal size la,lv & ra rv. normal lv wall motion,thickness,systolic & diastolic function with lvef of 65-70%. normal aortic,mitral,tv & pv. mild mr,tr & pi with normal pulmonary systolic pressures of 25 mm of hg. no pericardial effusion. normal size aortic root & ivc.
== END 2018-07-22 19:12 | disposition home or self-care (01) | DRG 58 ==
LOC: C.ER 21:46 → C.9E 23:48 → C.5S 07-21 09:41 → C.9E 07-21 09:52 → C.5S 07-21 11:04
PROVIDERS: ADMIT Internal Medicine Pulmonary Disease; ATTEND Internal Medicine Pulmonary Disease
DX: G83.9 Paralytic syndrome, unspecified (principal); I10 Essential (primary) hypertension; F41.0 Panic disorder [episodic paroxysmal anxiety]; F32.9 Major depressive disorder, single episode, unspecified; F42.9 Obsessive-compulsive disorder, unspecified; J45.909 Unspecified asthma, uncomplicated; R29.702 NIHSS score 2; Z79.82 Long term (current) use of aspirin

== ENCOUNTER 2018-08-30 01:26 | Emergency (ER) | payer OTHER ==
[2018-08-30 01:27] VITALS: BMI 28.3
[2018-08-30 01:40] VITALS: TEMP 98.3
[2018-08-30] MEDS ORDERED: MethylPREDNISolone 40 mg Vial ONE (02:11)
[2018-08-30 02:12] LABS: BASO # 0.1 K/uL (0.0-0.2); BASO % 0.9 % (0.0-2.0); EOS # 0.2 K/uL (0.0-0.7); EOS % 1.3 % (0.0-4.0); HEMOGLOBIN 13.5 g/dL (11.0-16.0); LYMPH % 34.6 % (20.0-40.0); MEAN CELL VOLUME 89.4 fL (81.0-99.0); MEAN CORPUSCULAR HEMOGLOBIN 30.4 pg (27.0-31.0); MEAN PLATELET VOLUME 7.7 fL (7.2-11.7); MONO # 0.6 K/uL (0.0-0.8); MONO % 4.4 % (0.0-10.0); NEUT # 8.5 K/uL (1.8-7.0); NEUT % 58.8 % (50.0-75.0); RBC 4.45 Mil/uL (3.80-5.20); RED CELL DISTRIBUTION WIDTH 13.6 % (11.5-14.5); WHITE BLOOD COUNT 14.4 K/uL (4.8-10.8)
[2018-08-30 02:13] VITALS: RESP 20
[2018-08-30 02:24] LABS: ALB/GLOB RATIO 1.4 (1.0-2.1); ALBUMIN 4.4 g/dL (3.5-5.0); ALT/SGPT 31 U/L (9-52); AST/SGOT 21 U/L (14-36); BLOOD UREA NITROGEN 15 mg/dL (7-17); CALCIUM 9.1 mg/dl (8.6-10.4); GFR NON-AFRICAN AMERICAN > 60
[2018-08-30 02:32] LABS: B-TYPE NATRIURETIC PEPTIDE 113 pg/mL (0-450)
[2018-08-30] MEDS ORDERED: Potassium Chloride 20 mEq ER Tab PO STA (02:42)
--- NOTE | 2018-08-30 02:43 | C.PDOC ---
History Of Present Illness 37 year old female with a Hx of asthma presents to the ER via EMS for a complaint of SOB. Patient states she has had no relief despite using her nebulizer and prednisone at home. Denies fever or chest pain. Time Seen by Provider: 08/30/18 01:44 Chief Complaint (Nursing): Shortness Of Breath History Per: Patient History/Exam Limitations: no limitations Onset/Duration Of Symptoms: Hrs Current Symptoms Are (Timing): Still Present Current Respiratory Medications: See Home Med List Associated Symptoms: Other (SOB). denies: Fever, Chest Pain Recent travel outside of the [place]: No Past Medical History Reviewed: Historical Data, Nursing Documentation, Vital Signs Vital Signs: Last Vital Signs Temp 98.3 F 08/30/18 01:36 Pulse 105 H 08/30/18 02:13 Resp 20 08/30/18 02:13 BP 119/77 08/30/18 02:13 Pulse Ox 98 08/30/18 02:13 - Medical History PMH: Anxiety, Asthma (intubationsX3), Depression, Gastrointestinal Ulcer, Pneumonia Denies: HIV, HTN, Chronic Kidney Disease, Seizures, Sexually Transmitted Disease Surgical History: Appendectomy, Endoscopy, Tonsillectomy - [facility] Procedures CONTINUOUS INVASIVE MECHANICAL VENTILATION <96 CONSEC HRS (06/01/13) INFLUENZA VACCINATION (12/07/14) INJECT/INFUSE NEC (07/06/15) INSERT ENDOTRACHEAL TUBE (06/01/13) NEBULIZER THERAPY (07/06/15) NON-INVASIVE MECHANICAL VENTILATION (12/07/14) VACCINATION NEC (06/01/13) Family History: States: Unknown Family Hx - Social History Hx Tobacco Use: No Hx Alcohol Use: No Hx Substance Use: No - Immunization History Hx Tetanus Toxoid Vaccination: No Hx Influenza Vaccination: No Hx Pneumococcal Vaccination: No Review Of Systems Constitutional: Negative for: Fever, Chills ENT: Negative for: Throat Pain Cardiovascular: Negative for: Chest Pain Respiratory: Positive for: Shortness of Breath Gastrointestinal: Negative for: Nausea, Vomiting Physical Exam - Physical Exam Appears: Non-toxic Skin: Normal Color, Warm, Dry Head: Atraumatic, Normacephalic Eye(s): bilateral: Normal Inspection Oral Mucosa: Moist Neck: Normal, Supple Chest: Symmetrical, No Tenderness Cardiovascular: Rhythm Regular (Tachycardic) Respiratory: No Rales, No Rhonchi, Wheezing (Bilateral) Gastrointestinal/Abdominal: Soft, No Tenderness Neurological/Psych: Oriented x3, Normal Speech ED Course And Treatment - Laboratory Results Result Diagrams: 08/30/18 02:09 08/30/18 02:09 ECG: Interpreted By Me, Viewed By Me ECG Rhythm: Sinus Rhythm Rate From EC O2 Sat by Pulse Oximetry: 98 (Room air) Pulse Ox Interpretation: Normal Medical Decision Making Medical Decision Making: Impression: 37 year old female with asthma exacerbation. Plan: * EKG * Blood work * CXR * Duoneb * K-Dur * Solumedrol On reevaluation, patient is resting comfortably in the ER in no acute respiratory distress with clear breath sounds, vitals are stable, will discharge home with Rx and instructions to follow up with PMD or return if symptoms worsen. Disposition Counseled Patient/Family Regarding: Diagnosis, Need For Followup, Rx Given - Disposition Referrals: Varsha Mix MD [Staff Provider] - Disposition: HOME/ ROUTINE Disposition Time: 04:17 Condition: IMPROVED Additional Instructions: Follow up with your primary medical doctor or clinic in 2-5 days for further evaluation. Take medications as prescribed. Return to the emergency department at any time if symptoms persist or worsen. Prescriptions: Albuterol HFA [Ventolin HFA 90 mcg/actuation (8 g)] 1 puff IH Q4 #1 puff Prednisone 50 mg PO DAILY #5 tablet Instructions: Asthma (ED) Forms: [facility] ([place]) - POA Present On Arrival: None - Clinical Impression Clinical Impression: Asthma exacerbation - PA / PRINT COLOR OPERATOR / Resident Statement MD/DO has reviewed & agrees with the documentation as recorded. - Scribe Statement The provider has reviewed the documentation as recorded by the Scribhan Elizondo All medical record entries made by the Scribe were at my direction and personally dictated by me. I have reviewed the chart and agree that the record accurately reflects my personal performance of the history, physical exam, medical decision making, and the department course for this patient. I have also personally directed, reviewed, and agree with the discharge instructions and dis position.
[2018-08-30] MEDS ORDERED: Potassium Chloride 20 mEq ER Tab PO ONE (03:03)
[2018-08-30 03:30] VITALS: BP 102/68; PULSE 72
[2018-08-30] MEDS ORDERED: Albuterol-Ipratrop 3 mg / 0.5 (3 ml) UD IH SCH (03:30)
[2018-08-30] MEDS ORDERED: Albuterol-Ipratrop 3 mg / 0.5 (3 ml) UD ONE (03:34)
[2018-08-30 04:18] VITALS: O2SAT 98
--- NOTE | 2018-08-30 18:01 | RAD ---
Date of service: 08/30/2018 PROCEDURE: CHEST RADIOGRAPH, 1 VIEW HISTORY: SOB COMPARISON: 07/20/2018 FINDINGS: LUNGS: Clear. PLEURA: No pneumothorax or pleural fluid seen. CARDIOVASCULAR: No aortic atherosclerotic calcification present. Normal. OSSEOUS STRUCTURES: No significant abnormalities. VISUALIZED UPPER ABDOMEN: Normal. OTHER FINDINGS: None. IMPRESSION: No active disease.
--- NOTE | 2018-09-01 21:24 | CARD ---
APPROVED REPORT Date of service: 08/30/2018 EKG Measurement Heart [id number] NM [id number] <Conclusion> Normal sinus rhythm T wave abnormality, consider inferior ischemia Abnormal ECG
== END 2018-08-30 04:30 | disposition home or self-care (01) ==
LOC: C.ER 01:26
DX: J45.901 Unspecified asthma with (acute) exacerbation (principal)
CPT/HCPCS: 71045; 80053; 83880; 85025; 93005; 96374; 99285; J2930

== ENCOUNTER 2018-12-05 05:01 | Emergency (ER) | payer OTHER ==
[2018-12-05 05:01] VITALS: BMI 28.3
[2018-12-05 05:09] VITALS: O2SAT 98
[2018-12-05] MEDS ORDERED: Albuterol-Ipratrop 3 mg / 0.5 (3 ml) UD ONE (05:21)
[2018-12-05 05:33] LABS: BASO # 0.2 K/uL (0.0-0.2); EOS # 0.4 K/uL (0.0-0.7); EOS % 2.1 % (0.0-4.0); HEMOGLOBIN 14.4 g/dL (11.0-16.0); LYMPH # 6.2 K/uL (1.0-4.3); LYMPH % 34.5 % (20.0-40.0); MEAN CELL VOLUME 90.2 fL (81.0-99.0); MEAN CORPUSCULAR HEMOGLOBIN 30.2 pg (27.0-31.0); MEAN CORPUSCULAR HGB CONC 33.5 g/dL (33.0-37.0); MEAN PLATELET VOLUME 7.7 fL (7.2-11.7); MONO # 0.9 K/uL (0.0-0.8); MONO % 5.1 % (0.0-10.0); NEUT # 10.3 K/uL (1.8-7.0); NEUT % 57.3 % (50.0-75.0); NRBC % 0.1 % (0.0-2.0); RBC 4.76 Mil/uL (3.80-5.20); RED CELL DISTRIBUTION WIDTH 13.6 % (11.5-14.5)
[2018-12-05 05:54] LABS: ALB/GLOB RATIO 1.4 (1.0-2.1); ALBUMIN 4.3 g/dL (3.5-5.0); ALT/SGPT 35 U/L (9-52); AST/SGOT 29 U/L (14-36); BLOOD UREA NITROGEN 16 mg/dL (7-17); CALCIUM 8.8 mg/dl (8.6-10.4); GFR NON-AFRICAN AMERICAN > 60
--- NOTE | 2018-12-05 06:12 | C.PDOC ---
History Of Present Illness 38 year old female, whose past medical history includes asthma, anxiety, OCD, panic attacks, TIA interstitial cysts, ulcers, hyponatremia, presents to the ED for evaluation after she awoke from her sleep feeling short of breath prior to arrival. Patient used prednisone via her inhaler and nebulizer and then felt like her throat was about to close up around 20 minutes later. Patient has history of intubations x3 in the past. She denies fever, chills, history of smoking or recent URI symptoms. Time Seen by Provider: 12/05/18 05:39 Chief Complaint (Nursing): Shortness Of Breath History Per: Patient History/Exam Limitations: no limitations Onset/Duration Of Symptoms: Hrs Current Symptoms Are (Timing): Still Present Current Respiratory Medications: See Home Med List, Prednisone Associated Symptoms: denies: Fever, Chills Additional History Per: Patient Past Medical History Reviewed: Historical Data, Nursing Documentation, Vital Signs Vital Signs: Last Vital Signs Temp 98.1 F 12/05/18 05:04 Pulse Resp 18 12/05/18 05:09 BP 114/63 12/05/18 05:04 Pulse Ox 98 12/05/18 05:04 - Medical History PMH: Anxiety, Asthma (intubationsX3), Depression, Gastrointestinal Ulcer, Pneumonia Denies: HIV, HTN, Chronic Kidney Disease, Seizures, Sexually Transmitted Disease Surgical History: Appendectomy, Endoscopy, Tonsillectomy - [facility] Procedures CONTINUOUS INVASIVE MECHANICAL VENTILATION <96 CONSEC HRS (06/01/13) INFLUENZA VACCINATION (12/07/14) INJECT/INFUSE NEC (07/06/15) INSERT ENDOTRACHEAL TUBE (06/01/13) NEBULIZER THERAPY (07/06/15) NON-INVASIVE MECHANICAL VENTILATION (12/07/14) VACCINATION NEC (06/01/13) Family History: States: Unknown Family Hx - Social History Hx Tobacco Use: No Hx Alcohol Use: No Hx Substance Use: No - Immunization History Hx Tetanus Toxoid Vaccination: No Hx Influenza Vaccination: No Hx Pneumococcal Vaccination: No Review Of Systems Constitutional: Negative for: Fever, Chills, Weakness Eyes: Negative for: Redness ENT: Positive for: Other (throat closing sensation ). Negative for: Mouth Swelling Cardiovascular: Negative for: Chest Pain Respiratory: Positive for: Shortness of Breath Gastrointestinal: Negative for: Nausea, Vomiting, Diarrhea Skin: Negative for: Rash Neurological: Negative for: Weakness, Numbness, Dizziness Physical Exam - Physical Exam Appears: Well, Non-toxic, No Acute Distress Skin: Normal Color, Warm, No Rash Head: Atraumatic, Normacephalic Eye(s): bilateral: Normal Inspection (no scleral icterus ), PERRL, EOMI Ear(s): Bilateral: Normal (no drainage ) Nose: Normal Oral Mucosa: Moist Throat: Normal (no swelling or injection ), No Exudate, Other (airway patent ) Neck: Normal ROM, Supple Chest: Symmetrical, No Deformity Cardiovascular: Rhythm Regular, No Murmur Respiratory: No Accessory Muscle Use, No Rales, No Rhonchi, No Stridor, Other (non-rebreather mask in place. speaking in around 3-word sentences, no signs of respiratory distress ) Gastrointestinal/Abdominal: Soft, No Tenderness, No Distention Extremity: Normal ROM Extremity: Bilateral: Atraumatic Pulses: Left Radial: Normal, Right Radial: Normal Neurological/Psych: Oriented x3, Normal Cranial Nerves (grossly intact ) ED Course And Treatment - Laboratory Results Result Diagrams: 12/05/18 05:30 12/05/18 05:30 Lab Results: Total Bilirubin 0.7 mg/dL (0.2-1.3) 12/05/18 05:30 AST 29 U/L (14-36) 12/05/18 05:30 ALT 35 U/L (9-52) 12/05/18 05:30 Alkaline Phosphatase 71 U/L (38-126) 12/05/18 05:30 Total Protein 7.3 g/dL (6.3-8.3) 12/05/18 05:30 Albumin 4.3 g/dL (3.5-5.0) 12/05/18 05:30 Globulin 3.0 gm/dL (2.2-3.9) 12/05/18 05:30 Albumin/Globulin Ratio 1.4 (1.0-2.1) 12/05/18 05:30 O2 Sat by Pulse Oximetry: 98 Medical Decision Making Medical Decision Making: Progress: CBC and CMP ordered. Will reassess after nebulizer treatment. patient reports feeling better and states she is ready to be discharged. she is seen laughing and conversing with her family. Disposition Counseled Patient/Family Regarding: Studies Performed, Diagnosis, Need For Followup, Rx Given - Disposition Disposition: HOME/ ROUTINE Disposition Time: 07:05 Condition: IMPROVED Prescriptions: Albuterol/Ipratropium [Duoneb 3 mg/0.5 mg (3 ml) UD] 3 ml IH Q6H PRN #30 PRN Reason: Wheezing Instructions: Asthma (ED) Forms: [facility] ([place]), General Discharge Instructions - Clinical Impression Clinical Impression: Asthma exacerbation - PA / JOB COACH / Resident Statement MD/DO has reviewed & agrees with the documentation as recorded. - Scribe Statement The provider has reviewed the documentation as recorded by the Scribe (Patti Francis) All medical record entries made by the Scribe were at my direction and personally dictated by me. I have reviewed the chart and agree that the record accurately reflects my personal performance of the history, physical exam, medical decision making, and the department course for this patient. I have also personally directed, reviewed, and agree with the discharge instructions and disposition.
[2018-12-05] MEDS ORDERED: Magnesium Sulfate 1 gm in D5W 2 GM/200 ML BAG IVPB ONE (06:21)
[2018-12-05] MEDS: Magnesium Sulfate 1 gm in D5W 1 GM/100 ML BAG IVPB SCH ×2 (06:33→06:42)
[2018-12-05 07:00] VITALS: TEMP 98
[2018-12-05 07:18] VITALS: BP 141/78; PULSE 84; RESP 17
== END 2018-12-05 07:18 | disposition home or self-care (01) ==
LOC: C.ER 05:01
DX: J45.901 Unspecified asthma with (acute) exacerbation (principal); F42.9 Obsessive-compulsive disorder, unspecified; F41.9 Anxiety disorder, unspecified; Z86.73 Personal history of transient ischemic attack (TIA), and cerebral infarction without residual deficits
CPT/HCPCS: 36415; 80053; 85025; 96374; 96376; 99285; J3475

== ENCOUNTER 2019-01-14 03:45 | Emergency (ER) | payer OTHER ==
--- NOTE | 2019-01-14 03:48 | C.PDOC ---
History Of Present Illness Patient with PMHx of asthma is brought to the ED by EMS for evaluation of acute SOB. Patient reports SOB has been worsening over the last 12 hours, today woke up unable to speak. Patient took 20 mg of prednisone from her home. After receiving 2 dounebs patient started taking in complete sentences. Time Seen by Provider: 01/14/19 03:47 History Per: Patient, EMS History/Exam Limitations: no limitations Onset/Duration Of Symptoms: Hrs (12) Current Symptoms Are (Timing): Still Present Preciptating Factors: Other Severity: Moderate Recent travel outside of the [place]: No Additional History Per: Patient - Asthma History Medication Use: Daily Rescue Medications: See Home Medication List Control Medications: Systemic Steroids Past Medical History Reviewed: Historical Data, Nursing Documentation, Vital Signs - Medical History PMH: Anxiety, Asthma (intubationsX3), Depression, Gastrointestinal Ulcer, Pneumonia Denies: HIV, HTN, Chronic Kidney Disease, Seizures, Sexually Transmitted Disease Surgical History: Appendectomy, Endoscopy, Tonsillectomy - [facility] Procedures CONTINUOUS INVASIVE MECHANICAL VENTILATION <96 CONSEC HRS (06/01/13) INFLUENZA VACCINATION (12/07/14) INJECT/INFUSE NEC (07/06/15) INSERT ENDOTRACHEAL TUBE (06/01/13) NEBULIZER THERAPY (07/06/15) NON-INVASIVE MECHANICAL VENTILATION (12/07/14) VACCINATION NEC (06/01/13) Family History: States: Unknown Family Hx - Social History Hx Tobacco Use: No Hx Alcohol Use: No Hx Substance Use: No - Immunization History Hx Tetanus Toxoid Vaccination: No Hx Influenza Vaccination: No Hx Pneumococcal Vaccination: No Review Of Systems Constitutional: Negative for: Fever, Chills Cardiovascular: Negative for: Chest Pain, Palpitations Respiratory: Positive for: Shortness of Breath. Negative for: Cough Gastrointestinal: Negative for: Nausea, Vomiting, Abdominal Pain Skin: Negative for: Rash Neurological: Negative for: Weakness, Numbness Physical Exam - Physical Exam Appears: Non-toxic, In Acute Distress Skin: Warm, Dry Head: Normacephalic Eye(s): bilateral: Normal Inspection Oral Mucosa: Moist Neck: Supple Chest: Symmetrical Respiratory: Decreased Breath Sounds, No Rales, No Rhonchi, Wheezing (diffuse wheezing ) Gastrointestinal/Abdominal: Soft, No Tenderness Extremity: Bilateral: Atraumatic, Normal Color And Temperature, Normal ROM Neurological/Psych: Oriented x3, Normal Speech, Normal Cognition Gait: Steady ED Course And Treatment - Laboratory Results Result Diagrams: 01/14/19 04:44 01/14/19 04:44 O2 Sat by Pulse Oximetry: 100 Pulse Ox Interpretation: Normal Progress Note: Plan: - Labs. - Duoneb. - Solumderol 125 mg IVP. - IV fluids. - UA Reevaluation Time: 06:28 Reassessment Condition: Improved Critical Care Time - Critical Care Note Total Time (in mins): 30 Documented critical care: time excludes all time spent performing seperately billable procedures. Medical Decision Making Medical Decision Making: Upon provider reevaluation patient is feeling better, is medically stable, and requires no further treatment in the ED at this time. Patient will be discharged home with Rx for prednisone, zithromax and duonebs . Counseling was provided and all questions were answered regarding diagnosis and need for follow up with dr dominguez. There is agreement to discharge plan. Return if symptoms persist or worsen. Disposition Counseled Patient/Family Regarding: Studies Performed, Diagnosis, Need For Followup, Rx Given - Disposition Referrals: Varsha Dominguez MD [Staff Provider] - Disposition: HOME/ ROUTINE Disposition Time: 03:48 Condition: FAIR Additional Instructions: Please return if symptoms recur Prescriptions: Albuterol/Ipratropium [Duoneb 3 MG/3 Ml-0.5 MG/3 Ml 3 Ml] 3 ml IH QID PRN #50 neb PRN Reason: Wheezing Azithromycin [Zithromax Tri-Luc] 500 mg PO DAILY #3 tablet Prednisone [Deltasone] 20 mg PO DAILY #5 tablet Instructions: Asthma, Adult (DC) - Clinical Impression Clinical Impression: Acute asthma exacerbation - Scribe Statement The provider has reviewed the documentation as recorded by the Scribe Kenrick Anguiano All medical record entries made by the Scribe were at my direction and personally dictated by me. I have reviewed the chart and agree that the record accurately reflects my personal performance of the history, physical exam, medical decision making, and the department course for this patient. I have also personally directed, reviewed, and agree with the discharge instructions and disposition.
[2019-01-14] MEDS ORDERED: Sodium Chloride 0.9% 1,000 ML IV ONE (03:49)
[2019-01-14 03:53] VITALS: BMI 33.3
[2019-01-14 03:57] VITALS: RESP 20
[2019-01-14] MEDS: Albuterol-Ipratrop 3 mg / 0.5 (3 ml) UD IH SCH ×3 (04:05→04:35)
[2019-01-14 04:18] LABS: ABG ALLEN TEST POS; ARTERIAL BLOOD GAS HCO3 19.9 mmol/L (21-28); ARTERIAL BLOOD GAS O2 SAT 99.9 % (95-98); ARTERIAL BLOOD GAS PCO2 26 mm/Hg (35-45); ARTERIAL BLOOD GAS PH 7.41 (7.35-7.45); ARTERIAL BLOOD GAS PO2 146 mm/Hg (80-100); ARTERIAL BLOOD GAS TCO2 17.3 mmol/L (22-28)
[2019-01-14 04:48] LABS: BASO # 0.2 K/uL (0.0-0.2); BASO % 1.1 % (0.0-2.0); EOS # 0.5 K/uL (0.0-0.7); EOS % 3.2 % (0.0-4.0); HEMOGLOBIN 13.8 g/dL (11.0-16.0); LYMPH # 5.9 K/uL (1.0-4.3); MEAN CELL VOLUME 90.7 fL (81.0-99.0); MEAN CORPUSCULAR HGB CONC 34.2 g/dL (33.0-37.0); MEAN PLATELET VOLUME 8.6 fL (7.2-11.7); MONO # 0.8 K/uL (0.0-0.8); NEUT # 7.9 K/uL (1.8-7.0); NEUT % 51.7 % (50.0-75.0); RBC 4.45 Mil/uL (3.80-5.20); RED CELL DISTRIBUTION WIDTH 13.9 % (11.5-14.5); WHITE BLOOD COUNT 15.2 K/uL (4.8-10.8)
[2019-01-14 04:58] LABS: ALB/GLOB RATIO 1.4 (1.0-2.1); ALBUMIN 4.1 g/dL (3.5-5.0); ALT/SGPT 33 U/L (9-52); AST/SGOT 21 U/L (14-36); BLOOD UREA NITROGEN 15 mg/dL (7-17); CALCIUM 8.7 mg/dl (8.6-10.4); GFR NON-AFRICAN AMERICAN > 60
[2019-01-14 05:58] VITALS: BP 110/68; PULSE 108; TEMP 98.2
[2019-01-14 06:31] VITALS: O2SAT 100
[2019-01-14 06:38] LABS: SQUAMOUS EPITHIAL 1 /hpf (0-5); URINE BILIRUBIN NEGATIVE (NEGATIVE); URINE BLOOD NEGATIVE (NEGATIVE); URINE CLARITY Clear (Clear); URINE COLOR Yellow (YELLOW); URINE GLUCOSE (UA) NORMAL (Normal); URINE LEUKOCYTE ESTERASE TRACE Leu/uL (Negative); URINE PROTEIN NEGATIVE (NEGATIVE); URINE UROBILINOGEN NORMAL mg/dL (0.2-1.0)
[2019-01-14 06:39] LABS: HCG,QUALITATIVE URINE NEGATIVE (NEGATIVE)
== END 2019-01-14 06:45 | disposition home or self-care (01) ==
LOC: C.ER 03:45
DX: J45.901 Unspecified asthma with (acute) exacerbation (principal)
CPT/HCPCS: 36600; 80053; 81001; 82803; 84703; 85025; 94640; 96361; 96374; 99285; J2930; J7030

== ENCOUNTER 2019-03-03 14:47 | Emergency (ER) | payer OTHER ==
[2019-03-03 15:25] VITALS: BMI 32.3
--- NOTE | 2019-03-03 15:56 | C.PDOC ---
History Of Present Illness 38 yr old female w/ hx of Anxiety, Asthma, Depression, Post Traumatic Stress Disorder p/w abdominal pain. Pt notes abdominal pain x2d, R sided into her flank, pressure like. No fall or trauma. She notes intermittent nausea but no vomiting episodes. No vaginal d/c. No rashes. Notes she took pepto-bismol today without much relief. No diarrhea / constipation or dark or bloody stool. No rash. No headache or rashes. No urinary complaints. No other complaints. Time Seen by Provider: 03/03/19 15:55 Chief Complaint (Nursing): Abdominal Pain Past Medical History Vital Signs: Last Vital Signs Temp 99.1 F 03/03/19 15:25 Pulse 103 H 03/03/19 15:25 Resp 20 03/03/19 15:25 BP 126/89 03/03/19 15:25 Pulse Ox 100 03/03/19 15:25 Primary Care Provider: Varsha Mix - Medical History PMH: Anxiety, Arthritis, Asthma (intubationsX3), Depression, Gastrointestinal Ulcer, Osteoporosis, Pneumonia, Post Traumatic Stress Disorder Denies: HIV, HTN, Chronic Kidney Disease, Seizures, Sexually Transmitted Disease Surgical History: Appendectomy, Endoscopy, Tonsillectomy - [facility] Procedures CONTINUOUS INVASIVE MECHANICAL VENTILATION <96 CONSEC HRS (06/01/13) INFLUENZA VACCINATION (12/07/14) INJECT/INFUSE NEC (07/06/15) INSERT ENDOTRACHEAL TUBE (06/01/13) NEBULIZER THERAPY (07/06/15) NON-INVASIVE MECHANICAL VENTILATION (12/07/14) VACCINATION NEC (06/01/13) Family History: States: Unknown Family Hx - Social History Hx Tobacco Use: No Hx Alcohol Use: No Hx Substance Use: No - Immunization History Hx Tetanus Toxoid Vaccination: No Hx Influenza Vaccination: Yes Hx Pneumococcal Vaccination: Yes Review Of Systems Constitutional: Negative for: Fever, Chills, Sweats, Weakness, Malaise Eyes: Negative for: Pain, Vision Change, Conjunctivae Inflammation ENT: Negative for: Ear Pain, Ear Discharge, Nose Pain, Nose Discharge Cardiovascular: Negative for: Chest Pain, Palpitations, Orthopnea, Paroxysmal Noc. Dyspnea Respiratory: Negative for: Cough, Shortness of Breath, Hemoptysis Gastrointestinal: Positive for: Nausea, Abdominal Pain. Negative for: Diarrhea, Constipation, Melena, Hematochezia, Hematemesis Genitourinary: Negative for: Dysuria, Frequency, Incontinence, Hematuria, Vaginal Discharge, Vaginal Bleeding Musculoskeletal: Negative for: Neck Pain, Shoulder Pain, Arm Pain, Back Pain, Hand Pain, Leg Pain Skin: Negative for: Rash, Lesions, Jaundice Neurological: Negative for: Weakness, Numbness, Incoordination, Change in Speech, Confusion, Seizures, Headache Psych: Negative for: Anxiety, Depression, Psychosis, Suicidal ideation Physical Exam - Physical Exam Appears: Well, Non-toxic, No Acute Distress Skin: Normal Color, Warm, Dry Head: Atraumatic, Normacephalic Eye(s): bilateral: Normal Inspection, PERRL, EOMI Ear(s): Bilateral: Normal Nose: Normal Oral Mucosa: Moist Tongue: Normal Appearing Lips: Normal Appearing Teeth: Normal Dentition Gingiva: Normal Appearing Throat: Normal, No Erythema, No Exudate, No Drooling Neck: Normal, Normal ROM, Supple, Other (no meningeal signs) Cardiovascular: Rhythm Regular, No Edema, No Friction Rub, No Murmur, No JVD Respiratory: Normal Breath Sounds Gastrointestinal/Abdominal: Soft, Tenderness (RLQ), No Mass, No Distention, No Guarding Back: Normal Inspection, No CVA Tenderness, No Vertebral Tenderness Extremity: Normal ROM, No Tenderness, No Pedal Edema Neurological/Psych: Oriented x3, Normal Speech, Normal Cognition Gait: Steady ED Course And Treatment - Laboratory Results Result Diagrams: 03/03/19 16:31 03/03/19 16:31 O2 Sat by Pulse Oximetry: 100 - CT Scan/US US Transvaginal Other Rad Studies (CT/US): Read By Radiologist, Radiology Report Reviewed CT/US Interpretation: History. Cyst. Comparison. None available. Technique. TA/TV. Findings. Uterus. Measures 11.2 x 5.1 x 6.6 cm. Normal in size and appearance. Mid fundal left fibroid measures 2.9 x 2.3 x 2.2 cm. Nabothian cysts. Endometrium. Measures 14 mm in diameter. Unremarkable. Right ovary. Measures 4.2 x 3.5 x 4 cm. No solid mass. Normal flow. Cyst with internal echoes measuring 3.2 x 3 x 3.3 cm with another cyst with tiny calcification measures 1.9 x 1.9 x 2.3 cm. Left ovary. Not visualized. Free fluid. Free fluid in the cul-de-sac. Other Findings. None. Impression. 1. Uterine fibroid. 2. Nabothian cysts. 3. Right ovarian cysts. 4. Free fluid in cul-de-sac. . Electronically signed on March 03, 2019 8:50:48 PM EDT by: Vishal Drew M.D., M.B.A., Certified By [employer]. Fellowship Trained MRI and CT Specialist Medical Decision Making Medical Decision Makin yr old female w/ hx of Anxiety, Asthma, Depression, Post Traumatic Stress Disorder p/w abdominal pain. RLQ abdominal pain on exam. Flank pain per patient but none on exam. No CP or SOB. Pending imaging and labs. 1653 leukoctyosis on labs, CXR added. no meningeal signs on exam pending imaging results 1734 +UTI NO cvat on exam 2033 CT largely unremarkable rocephin ordered given uti CT w/ enlagened ovary cyst 5.2 x3.0 on R, recc TVUS pending TVUS result pt in NAD 2136 abd non-ttp on re-exam TVUS w/ largest diameter ovarian cyst 4.2 x 3.5 x 4 pt denies any intermittent pain, non-torsional type pain appreicate consult w/ Dr. Cramer (OBGYN): no concern for torsion at this time, give non-intermittent pain clear for d/c home with return indications and f/u likely uti, rocephin given in ED, will rx with cipro outpt and have pt followup with urology and obgyn she is agreeable to plan Disposition - Disposition Referrals: [facility] [Outside] [facility] [Outside] [facility] [Outside] [facility] [Outside] [facility] [Outside] Sofía Cramer DO [Staff Provider] - Cathie Shrestha MD [Staff Provider] - [place] Gavin MD [Staff Provider] - Disposition Time: 21:38 Condition: STABLE Additional Instructions: you have an ovarian cyst and a uti, follow up with urology and obgyn as well as your primary care doctor or clinic REBEKA BUTT, thank you for letting us take care of you today. Your provider was Orestes Sen and you were treated for NAUSEA/STOMACH PAIN. The emergency medical care you received today was directed at your acute symptoms. If you were prescribed any medication, please fill it and take as directed. It may take several days for your symptoms to resolve. Return to the Emergency Department if your symptoms worsen, do not improve, or if you have any other problems. Please contact your doctor or call one of the physicians/clinics you have been referred to that are listed on the Patient Visit Information form that is included in your discharge packet. Bring any paperwork you were given at discharge with you along with any medications you are taking to your follow up visit. Our treatment cannot replace ongoing medical care by a primary care provider outside of the emergency department. Thank you for allowing the [facility] team to be part of your care today. If you had an X-Ray or CT scan: A Radiologist will review the ED reading if any change in treatment is needed we will contact you. If you had a blood, urine, or wound culture: It will take several days for the results, if any change in treatment is needed we will contact you. If you had an STI test: It will take 48 hours for the results. Please call after 1 week if you have not heard back. Prescriptions: Ciprofloxacin [Cipro] 500 mg PO BID 7 Days #14 tab Instructions: Ovarian Cyst (DC), Urinary Tract Infection, Adult (DC) Forms: [employer] ([place] [employer]) - Clinical Impression Clinical Impression: Ovarian cyst, UTI (urinary tract infection)
[2019-03-03] MEDS ORDERED: Sodium Chloride 0.9% 1,000 ML IV ONE (16:09)
[2019-03-03 16:42] LABS: BASO # 0.1 K/uL (0.0-0.2); BASO % 0.4 % (0.0-2.0); EOS % 0.2 % (0.0-4.0); HEMOGLOBIN 14.8 g/dL (11.0-16.0); LYMPH # 1.6 K/uL (1.0-4.3); LYMPH % 9.9 % (20.0-40.0); MEAN CORPUSCULAR HEMOGLOBIN 31.1 pg (27.0-31.0); MEAN CORPUSCULAR HGB CONC 35.2 g/dL (33.0-37.0); MEAN PLATELET VOLUME 7.9 fL (7.2-11.7); MONO # 0.4 K/uL (0.0-0.8); MONO % 2.2 % (0.0-10.0); NEUT # 14.2 K/uL (1.8-7.0); NEUT % 87.3 % (50.0-75.0); NRBC % 0.1 % (0.0-2.0); PLATELET COUNT 358 K/uL (130-400); RBC 4.75 Mil/uL (3.80-5.20); RED CELL DISTRIBUTION WIDTH 13.9 % (11.5-14.5); WHITE BLOOD COUNT 16.3 K/uL (4.8-10.8)
[2019-03-03] MEDS ORDERED: Sodium Chloride 0.9% 1,000 ML ONE (16:44)
[2019-03-03 16:49] LABS: ALB/GLOB RATIO 1.3 (1.0-2.1); ALBUMIN 4.3 g/dL (3.5-5.0); ALT/SGPT 32 U/L (9-52); AST/SGOT 21 U/L (14-36); BLOOD UREA NITROGEN 12 mg/dL (7-17); CALCIUM 9.5 mg/dl (8.6-10.4); GFR NON-AFRICAN AMERICAN > 60; LIPASE 64 U/L (23-300)
[2019-03-03 16:51] LABS: MEAN CELL VOLUME 88.4 fL (81.0-99.0)
--- NOTE | 2019-03-03 17:05 | RAD ---
Date of service: 03/03/2019 HISTORY: leukocytosis COMPARISON: 08/30/2018. FINDINGS: LUNGS: The lungs are well inflated and clear. PLEURA: No pleural effusions or pneumothorax. CARDIOVASCULAR: The heart is normal in size. No aortic atherosclerotic calcifications present. OSSEOUS STRUCTURES: Within normal limits for the patient's age. VISUALIZED UPPER ABDOMEN: Normal. OTHER FINDINGS: None. IMPRESSION: No active pulmonary disease.
[2019-03-03 17:27] LABS: SQUAMOUS EPITHIAL < 1 /hpf (0-5); URINE BILIRUBIN NEGATIVE (NEGATIVE); URINE BLOOD NEGATIVE (NEGATIVE); URINE CLARITY Hazy (Clear); URINE COLOR Amber (YELLOW); URINE GLUCOSE (UA) NORMAL (Normal); URINE LEUKOCYTE ESTERASE 1+ Leu/uL (Negative); URINE PROTEIN 1+ mg/dL (NEGATIVE); URINE UROBILINOGEN NORMAL mg/dL (0.2-1.0)
[2019-03-03] MEDS ORDERED: Iohexol 350mg/ml 100 ML ONE (17:35)
[2019-03-03 18:26] LABS: LYMPHOCYTE 10 % (20-40); MONOCYTE 3 % (0-10); NEUTROPHIL 87 % (50-75); TOTAL CELLS COUNTED 100
[2019-03-03 18:27] LABS: PLATELET ESTIMATE NORMAL (NORMAL)
--- NOTE | 2019-03-03 18:43 | CT ---
Date of service: 03/03/2019 PROCEDURE: CT Abdomen and Pelvis with contrast HISTORY: abd pain, r sided worse COMPARISON: 01/26/2018 TECHNIQUE: CT scan of the abdomen and pelvis was performed after administration of intravenous contrast. Oral contrast was not administered. Coronal and sagittal reformatted images were obtained. Contrast dose: Radiation dose: Total exam DLP = 1083.27 mGy-cm. This CT exam was performed using one or more of the following dose reduction techniques: Automated exposure control, adjustment of the mA and/or kV according to patient size, and/or use of iterative reconstruction technique. FINDINGS: LOWER THORAX: The visualized right lung is clear. There is subsegmental atelectasis in the lingula and left lateral lung base. LIVER: Mild hepatomegaly and diffuse fatty liver. Normal homogeneous enhancement. No gross lesion or ductal dilatation. GALLBLADDER AND BILE DUCTS: Well distended. No calcified gallstones, wall thickening or pericholecystic fluid. PANCREAS: Normal in size with homogeneous enhancement. No gross lesion or ductal dilatation. SPLEEN: Normal in size and appearance. ADRENALS: No discrete nodule. KIDNEYS AND URETERS: Normal in size with homogeneous enhancement. No hydronephrosis. There are few small simple cysts in both kidneys. VASCULATURE: No aortic aneurysm. There are no aortic atherosclerotic calcifications or mural plaque present. BOWEL: Evaluation of the bowel is limited in the absence of oral contrast. The proximal and distal small bowel loops are normal in caliber. There is mild segmental dilatation of fluid-filled small bowel loop in the left mid abdomen likely ileus. There is moderate amount of stool in the ascending colon. The left hemicolon is decompressed. APPENDIX: Normal appendix. PERITONEUM: No free fluid. No free air. LYMPH NODES: No enlarged lymph nodes. BLADDER: Well distended and normal in appearance. REPRODUCTIVE: The uterus is anteverted and bulky. There is a 3.0 x 2.5 cm isodense myometrial lesion along the left lateral wall. There is a 5.2 x 3.0 cm complicated/septated cyst in the right ovary. BONES: No acute fracture. Within normal limits for the patient's age. OTHER FINDINGS: None. IMPRESSION: 1. 5.2 x 3.0 cm complicated/septated cyst in the right ovary. If clinically indicated, correlation with pelvic ultrasound may be performed to evaluate for ovarian torsion. 2. Suspect 3.0 x 2.5 cm intramural fibroid in the left lateral myometrium. Please correlate with pelvic ultrasound. 3. Mild hepatomegaly and fatty liver.
[2019-03-03] MEDS ORDERED: cefTRIAXone IV 1 gm in Dextros 50 ML IVPB ONE (20:26)
[2019-03-03 21:53] VITALS: BP 108/78; PULSE 91; RESP 18; TEMP 98; O2SAT 96
--- NOTE | 2019-03-04 12:32 | US ---
Date of service: 03/03/2019 HISTORY: cyst COMPARISON: CT abdomen and pelvis from 03/03/2019. TECHNIQUE: Transabdominal and transvaginal pelvic ultrasound was performed. FINDINGS: UTERUS: Measures 11.2 x 5.1 x 6.6 cm. Anteverted and enlarged. There is a 2.9 x 2.3 x 2.2 cm intramural fibroid midbody to the left. ENDOMETRIUM: Measures 14 mm in diameter. Unremarkable. CERVIX: There are nabothian cysts. RIGHT OVARY: Measures 4.2 x 3.5 x 4.0 cm. No solid mass. Normal flow. There is a 3.2 x 3.0 x 3.3 cm cyst with internal echoes and a 1.9 x 1.9 x 2.3 cm simple cyst. There is nonspecific tiny calcification. LEFT OVARY: Not visualized. FREE FLUID: There is small amount of free fluid in the pelvis. OTHER FINDINGS: None. IMPRESSION: 1. 3.2 x 3.0 x 3.3 cm complicated/hemorrhagic cyst in the right ovary. No evidence for torsion. Follow-up ultrasound in 3-6 month interval is recommended to assess stability/resolution. 2. 2.9 x 2.3 x 2.2 cm intramural fibroid in the midbody of the uterus to the left. A preliminary report was provided by [employer].
== END 2019-03-03 22:03 | disposition home or self-care (01) ==
LOC: C.ER 14:47
DX: N39.0 Urinary tract infection, site not specified (principal); N83.209 Unspecified ovarian cyst, unspecified side; M81.0 Age-related osteoporosis without current pathological fracture; F32.9 Major depressive disorder, single episode, unspecified
CPT/HCPCS: 71045; 74177; 76830; 76856; 80053; 81001; 81025; 83690; 85025; 87086; 96374; 96375; 99285; J0696; J2405; J7030; Q9967